=== PATIENT | female | born 1995 | race Two or more races ===

== ENCOUNTER 2017-01-09 07:47 | Inpatient (IN) | payer MEDICAID ==
[2017-01-09 08:32] LABS: APPEARANCE,URINE CLOUDY; BILIRUBIN,URINE NEGATIVE (NEGATIVE); GLUCOSE, URINE NEGATIVE (NEGATIVE); KETONES,URINE NEGATIVE (NEGATIVE); LEUKOCYTE ESTERASE,URINE TRACE (NEGATIVE); NITRITE,URINE NEGATIVE (NEGATIVE); PROTEIN,URINE 100 mg/dL (NEGATIVE); URINE SPECIFIC GRAVITY 1.009; UROBILINOGEN,URINE NEGATIVE mg/dL (<2.0)
[2017-01-09 08:42] LABS: AMNISURE (ROM) POSITIVE (NEGATIVE)
[2017-01-09 08:49] LABS: URINE BARBITURATES SCREEN NEGATIVE; URINE METHADONE SCREEN NEGATIVE; URINE OPIATES LOW NEGATIVE; URINE PHENCYCLIDINE SCREEN NEGATIVE
[2017-01-09] MEDS ORDERED: NALBUPHINE HCL INJ 10 MG/1 ML AMPULE INJ ONE (09:23)
[2017-01-09] MEDS ORDERED: PROMETHAZINE HCL INJ 25 MG/1 ML VIAL IV ONE (09:23)
[2017-01-09] MEDS ORDERED: PROMETHAZINE HCL INJ 25 MG/1 ML VIAL ONE (09:32)
[2017-01-09] MEDS ORDERED: NALBUPHINE HCL INJ 10 MG/1 ML AMPULE ONE (09:32)
[2017-01-09 09:45] LABS: ABSOLUTE EOSINOPHILS # (AUTO) 0.1 10^3/uL (0.0-0.6); ABSOLUTE LYMPHOCYTES (AUTO) 1.9 10^3/uL (0.5-4.7); ABSOLUTE MONOCYTES (AUTO) 0.8 10^3/uL (0.1-1.4); ABSOLUTE NEUT (AUTO) 6.4 10^3/uL (1.7-8.2); BASOPHILS % (AUTO) 0.5 % (0-2); EOSINOPHILS % (AUTO) 1.4 % (0-6); HEMATOCRIT 35.6 % (36.0-47.0); HEMOGLOBIN 12.1 g/dL (12.0-15.5); HGB HCT DIFFERENCE 0.7; LYMPHOCYTES % (AUTO) 20.6 % (13-45); MEAN CORPUSCULAR HEMOGLOBIN 31.1 pg (27.0-33.4); MEAN CORPUSCULAR HGB CONC 34.1 g/dL (32.0-36.0); MEAN CORPUSCULAR VOLUME 91 fl (80-97); MONOCYTES % (AUTO) 8.8 % (3-13); SEGMENTED NEUTROPHILS % (AUTO) 68.7 % (42-78); WHITE BLOOD COUNT 9.3 10^3/uL (4.0-10.5)
--- NOTE | 2017-01-09 10:01 | L&D Flow Sheet ---
LD Flowsheet Datetime Report Generated by CPN: 01/09/2017 10:00 Datetime: 01/09/2017 09:00 Uterine Activity Monitor Mode: External (Juliette Jaynalatt, RN) Frequency (min): 3-6 (Juliette Marlatt, RN) Quality: Mild/Moderate (Juliette Jaynalatt, RN) Duration (sec): 60-120 (Juliette Banda, RN) Resting Tone (Palpate): Relaxed (Juliette Jaynalatt, RN) Assessment A Monitor Mode: External US (Juliette Marlatt, RN) FHR Baseline Rate : 130 (Juliette Marlatt, RN) Variability: Moderate 6-25 bpm (Juliette Marlatt, RN) Accelerations: 15X15 (Juliette Marlatt, RN) Decelerations: None (Juliette Marlatt, RN) Datetime: 01/09/2017 08:30 Uterine Activity Monitor Mode: External (Juliette Marlatt, RN) Frequency (min): 5 (Juliette Marlatt, RN) Quality: Mild/Moderate (Juliette Marlatt, RN) Duration (sec): 60-90 (Juliette Marlatt, RN) Resting Tone (Palpate): Relaxed (Juliette Marlatt, RN) Assessment A Monitor Mode: External US (Juliette Marlatt, RN) FHR Baseline Rate : 130 (Juliette Marlatt, RN) Variability: Moderate 6-25 bpm (Juliette Marlatt, RN) Accelerations: 15X15 (Juliette Marlatt, RN) Decelerations: None (Juliette Marlatt, RN) Datetime: 01/09/2017 08:11 Vital Signs NBP Sys/Mackenzie/Mean (mmHg): 122 (QS system process) : 66 (QS system process) : 85 (QS system process) Pulse: 88 (QS system process) Datetime: 01/09/2017 08:10 Comments: Monitors applied, explained to pt. (Aidee Oconnell RN) Vaginal Exam Dilatation (cm): 1.0 (Aidee Oconnell RN) Effacement (%): 80 (Aidee Oconnell RN) Station: -1 (Aidee Oconnell RN) Exam by: Sean Oconnell RN (Aidee Oconnell RN) Patient Care Patient Position/Activity: Right Lateral (Aidee Oconnell, RN) Datetime: 01/09/2017 07:54 Frequency (min): q 3 min (Aidee Oconnell RN) Pain Pain Scale: 5 (Aidee Oconnell RN) Pain Presence: Intermittent (Aidee Oconnell RN) Pain Type: Contraction (Aidee Oconnell RN) Pain Location: Abdomen (Aidee Oconnell RN) Pain Goal: 0 (Aidee Oconnell RN) Pain Relief Measures: Comfort Measures (Aidee Oconnell RN) Pain Coping: Breathing Through Contractions (Aidee Oconnell RN) Vaginal Bleeding: Scant (Aidee Oconnell RN) Maternal Assessment Level of Consciousness: Fully Conscious (Aidee Oconnell RN) DTR's/Clonus: DTRs 2+; No Clonus (Aidee Oconnell RN) Headache: Denies (Aidee Oconnell RN) Breath Sounds, Left: Clear and Equal (Aidee Oconnell RN) Breath Sounds, Right: Clear and Equal (Aidee Oconnell RN) Nausea/Vomiting: Denies (Aidee Oconnell RN) RUQ Epigastric Pain: Denies (Aidee Oconnell RN)
--- NOTE | 2017-01-09 12:02 | L&D Flow Sheet ---
LD Flowsheet Datetime Report Generated by CPN: 01/09/2017 12:00 Datetime: 01/09/2017 11:30 Monitor Mode: External; Palpation (Aidee Oconnell, RN) Frequency (min): 2-4 (Aidee Oconnell, RN) Quality: Mild/Moderate (Aidee Oconnell, RN) Duration (sec): 60-90 (Aidee Oconnell, RN) Resting Tone (Palpate): Relaxed (Aidee Oconnell, RN) Datetime: 01/09/2017 11:00 Monitor Mode: External; Palpation (Aidee Oconnell, RN) Frequency (min): 5-6 (Aidee Oconnell, RN) Quality: Mild/Moderate (Aidee Oconnell, RN) Duration (sec): 80-130 (Aidee Oconnell, RN) Resting Tone (Palpate): Relaxed (Aidee Oconnell, RN) Monitor Mode: External US (Aidee Oconnell, RN) FHR Baseline Rate : 130 (Aidee Oconnell, RN) Variability: Minimal - Undetectable to <=5 bpm (Aidee Oconnell, RN) Accelerations: 15X15 (Aidee Oconnell, RN) Decelerations: None (Aidee Oconnell, RN) Datetime: 01/09/2017 10:30 Monitor Mode: External; Palpation (Aidee Oconnell, RN) Frequency (min): 4-5 (Aidee Oconnell, RN) Quality: Mild/Moderate (Aidee Oconnell, RN) Duration (sec): 80-120 (Aidee Oconnell, RN) Resting Tone (Palpate): Relaxed (Aidee Oconnell, RN) Monitor Mode: External US (Aidee Oconnell, RN) FHR Baseline Rate : 130 (Aidee Oconnell, RN) Variability: Minimal - Undetectable to <=5 bpm (Aidee Oconnell, RN) Accelerations: 10X10 (Aidee Oconnell, RN) Decelerations: None (Aidee Oconnell, RN) Datetime: 01/09/2017 10:00 Monitor Mode: External (Rosalba Ayush, RN) Frequency (min): 3-5 (Rosalbalonnie Peacock, RN) Quality: Mild/Moderate (Rosalba Ayush, RN) Duration (sec): 60-80 (Rosalba Ayush, RN) Resting Tone (Palpate): Relaxed (Rosalba Peacock, RN) Monitor Mode: External US (Rosalba Peacock, RN) FHR Baseline Rate : 130 (Rosalba Ayush, RN) Variability: Moderate 6-25 bpm (Rosalba Ayush, RN) Accelerations: 15X15 (Rosalba Ayush, RN) Decelerations: Early (Rosalba Peacock, RN)
[2017-01-09] MEDS: RINGERS SOLUTION,LACTATED 1,000 ML IV PRN ×2 (12:22→12:40)
[2017-01-09] MEDS ORDERED: EPHEDRINE SULFATE INJ 50 MG/1 ML AMPULE ONE (12:25)
[2017-01-09] MEDS ORDERED: FENTANYL CITRATE INJ/PF 100 MCG/2 ML AMPUL ONE (12:25)
[2017-01-09] MEDS ORDERED: FENTANYL/BUPIVACAINE/NS/PF 200 MCG/100 ML RTUINJ EPI ONE (12:26)
[2017-01-09] MEDS ORDERED: BUPIVACAINE HCL 0.25 % INJ/PF (2.5 MG/1 ML) 30 ML VIAL ONE (12:26)
[2017-01-09] MEDS ORDERED: PHENYLEPHRINE HCL INJ/PF 10 MG/1 ML SDV ONE (12:26)
[2017-01-09] MEDS ORDERED: FENTANYL/BUPIVACAINE/NS/PF 100 ML EPI PRN (12:30)
[2017-01-09] MEDS ORDERED: BUPIVACAINE HCL 0.25 % INJ/PF (2.5 MG/1 ML) 30 ML VIAL INFIL ONE (12:30)
--- NOTE | 2017-01-09 14:01 | L&D Flow Sheet ---
LD Flowsheet Datetime Report Generated by CPN: 01/09/2017 14:00 Datetime: 01/09/2017 13:45 Monitor Mode: External US (Aideegaby Oconnlel, RN) FHR Baseline Rate : 140 (Aideegaby Oconnell, RN) Variability: Minimal - Undetectable to <=5 bpm (Aidee Eubankson, RN) Accelerations: 15X15 (Aidee Oconnell, RN) Decelerations: None (Aidee Oconnell, RN) Datetime: 01/09/2017 13:43 NBP Sys/Mackenzie/Mean (mmHg): 111 (QS system process) : 73 (QS system process) : 87 (QS system process) Pulse: 102 (QS system process) LaborFlag: Antepartum (QS system process) Datetime: 01/09/2017 13:27 NBP Sys/Mackenzie/Mean (mmHg): 109 (QS system process) : 65 (QS system process) : 81 (QS system process) Pulse: 96 (QS system process) LaborFlag: Antepartum (QS system process) Datetime: 01/09/2017 13:18 Pain Scale: 0 (Aidee Oconnell RN) Pain Presence: None/Denies (Aidee Oconnell RN) Pain Type: N/A (Aidee Oconnell RN) Pain Goal: 0 (Aidee Oconnell RN) Pain Relief Measures: GUTTER INSTALLER Use (Aidee Oconnell RN) LaborFlag: Antepartum (QS system process) Datetime: 01/09/2017 13:15 Monitor Mode: External US (Aidee Oconnell, RN) FHR Baseline Rate : 130 (Aidee Oconnell, RN) Variability: Moderate 6-25 bpm (Aidee Oconnell, RN) Accelerations: 15X15 (Aidee Oconnell, RN) Decelerations: Early (Aidee Oconnell, RN) Datetime: 01/09/2017 13:12 NBP Sys/Mackenzie/Mean (mmHg): 101 (QS system process) : 58 (QS system process) : 74 (QS system process) Pulse: 88 (QS system process) I/O Interventions: Mccormick Cath Inserted (Aidee Oconnell, AHSAN) LaborFlag: Antepartum (QS system process) Datetime: 01/09/2017 13:10 NBP Sys/Mackenzie/Mean (mmHg): 108 (QS system process) : 66 (QS system process) : 82 (QS system process) Pulse: 77 (QS system process) LaborFlag: Antepartum (QS system process) Datetime: 01/09/2017 13:09 Anesthesia Level Check: T10- Umbilicus (Aidee Oconnell, RN) Datetime: 01/09/2017 13:07 NBP Sys/Mackenzie/Mean (mmHg): 109 (QS system process) : 60 (QS system process) : 78 (QS system process) Pulse: 81 (QS system process) LaborFlag: Antepartum (QS system process) Datetime: 01/09/2017 13:04 NBP Sys/Mackenzie/Mean (mmHg): 128 (QS system process) : 73 (QS system process) : 92 (QS system process) Pulse: 95 (QS system process) LaborFlag: Antepartum (QS system process) Datetime: 01/09/2017 13:01 NBP Sys/Mackenzie/Mean (mmHg): 131 (QS system process) : 75 (QS system process) : 97 (QS system process) Pulse: 92 (QS system process) Pulse: 93 (QS system process) SpO2 (%): 97 (QS system process) LaborFlag: Antepartum (QS system process) Datetime: 01/09/2017 13:00 Monitor Mode: External US (Aidee Oconnell RN) FHR Baseline Rate : 130 (Aidee Oconnell RN) Variability: Moderate 6-25 bpm (Aidee Oconnell, RN) Accelerations: 15X15 (Aidee Oconnell, RN) Decelerations: None (Aidee Oconnell, RN) Epidural Procedure: Cath Placed (Aidee Eubankson, RN) Datetime: 01/09/2017 12:59 NBP Sys/Mackenzie/Mean (mmHg): 140 (QS system process) : 76 (QS system process) : 102 (QS system process) Pulse: 86 (QS system process) LaborFlag: Antepartum (QS system process) Datetime: 01/09/2017 12:57 Epidural Procedure: Test Dose (Aidee Eubankson, RN) Datetime: 01/09/2017 12:56 Pulse: 94 (QS system process) SpO2 (%): 99 (QS system process) LaborFlag: Antepartum (QS system process) Datetime: 01/09/2017 12:51 Pulse: 100 (QS system process) SpO2 (%): 98 (QS system process) LaborFlag: Antepartum (QS system process) Datetime: 01/09/2017 12:48 Procedure Verify: Correct Patient Identity; Correct Side and Site are Marked; Accurate Procedure Consent Form; Agreement on Procedure to be Done; Correct Patient Position (Aidee Oconnell RN) Anesthesia Plans: Epidural (Aidee Oconnell RN) Epidural Positioning: Sitting (Aidee Oconnell RN) Datetime: 01/09/2017 12:42 NBP Sys/Mackenzie/Mean (mmHg): 126 (QS system process) : 78 (QS system process) : 96 (QS system process) Pulse: 82 (QS system process) LaborFlag: Antepartum (QS system process) Datetime: 01/09/2017 12:30 Monitor Mode: External; Palpation (Aidee Oconnell, RN) Frequency (min): 2-4.5 (Aidee Oconnell, RN) Quality: Mild/Moderate (Aidee Oconnell, RN) Duration (sec): 60-100 (Aidee Oconnell, RN) Resting Tone (Palpate): Relaxed (Aidee Oconnell, RN) Monitor Mode: External US (Aidee Eubankson, RN) FHR Baseline Rate : 130 (Aidee Oconnell, RN) Variability: Minimal - Undetectable to <=5 bpm (Aidee Oconnell, RN) Accelerations: 15X15 (Aidee Oconnell, RN) Decelerations: Early (Aidee Oconnell, RN) Datetime: 01/09/2017 12:22 Pain Scale: 5 (Aidee Oconnell RN) Pain Presence: Intermittent (Aidee Oconnell RN) Pain Type: Contraction (Aidee Oconnell RN) Pain Location: Abdomen (Aidee Oconnell RN) Pain Goal: 5 (Aidee Oconnell RN) Pain Assessment Comments: Epidural requested. (Aidee Oconnell RN) LaborFlag: Antepartum (QS system process) Datetime: 01/09/2017 12:17 Dilatation (cm): 3.0 (Rosalba Peacock RN) Effacement (%): 90 (Rosalba Peacock RN) Station: -1 (Rosalba Peacock RN) Exam by: Sean Oconnell RN (Rosalba Peacock, AHSAN) Datetime: 01/09/2017 12:04 Temperature (F): 98.4 (Aidee Oconnell RN) Temperature (C): 36.9 (QS system process) Temperature Route: Oral (Aidee Oconnell RN) LaborFlag: Antepartum (QS system process) Datetime: 01/09/2017 12:00 Monitor Mode: External; Palpation (Aidee Oconnell RN) Frequency (min): 2-4 (Aidee Oconnell RN) Quality: Moderate (Aidee Oconnell RN) Duration (sec): 60-110 (Aidee Oconnell RN) Resting Tone (Palpate): Relaxed (Aidee Oconnell RN) Monitor Mode: External US (Aidee Oconnell RN) FHR Baseline Rate : 130 (Aidee Oconnell RN) Variability: Minimal - Undetectable to <=5 bpm (Aidee Oconnell RN) Accelerations: None (Aidee Oconnell RN) Decelerations: Late (Aidee Oconnell RN)
[2017-01-09] MEDS ORDERED: MISOPROSTOL 0.2 MG TABLET ONE (14:30)
[2017-01-09] MEDS ORDERED: OXYTOCIN/NORMAL SALINE 20 UNIT/1,000 ML RTUINJ ONE (14:30)
[2017-01-09] MEDS ORDERED: LIDOCAINE 1% INJ-PF (10 MG/ML) 30 ML SDV ONE (14:30)
--- NOTE | 2017-01-09 16:01 | L&D Flow Sheet ---
LD Flowsheet Datetime Report Generated by CPN: 01/09/2017 16:00 Datetime: 01/09/2017 15:57 NBP Sys/Mackenzie/Mean (mmHg): 107 (QS system process) : 67 (QS system process) : 82 (QS system process) Pulse: 75 (QS system process) Datetime: 01/09/2017 15:43 NBP Sys/Mackenzie/Mean (mmHg): 110 (QS system process) : 65 (QS system process) : 82 (QS system process) Pulse: 98 (QS system process) Respirations: 16 (Aidee Oconnell, RN) Pain Scale: 1 (Aidee Oconnell, RN) Pain Presence: Intermittent (Aidee Oconnell, RN) Pain Type: Cramping (Aidee Oconnell, RN) Pain Location: Abdomen (Aidee Oconnell, RN) Pain Goal: 0 (Aidee Oconnell, RN) Datetime: 01/09/2017 15:28 NBP Sys/Mackenzie/Mean (mmHg): 109 (QS system process) : 72 (QS system process) : 84 (QS system process) Pulse: 99 (QS system process) Respirations: 16 (Aidee Oconnell, RN) Pain Scale: 1 (Aidee Oconnell, RN) Pain Presence: Intermittent (Aidee Oconnell, RN) Pain Type: Cramping (Aidee Oconnell, RN) Pain Location: Abdomen (Aidee Oconnell, RN) Pain Goal: 0 (Aidee Oconnell, RN) Datetime: 01/09/2017 15:12 NBP Sys/Mackenzie/Mean (mmHg): 111 (QS system process) : 77 (QS system process) : 87 (QS system process) Pulse: 105 (QS system process) Respirations: 16 (Aidee Oconnell, AHSAN) Pain Scale: 0 (Aidee Oconnell RN) Pain Presence: None/Denies (Aidee Oconnell RN) Pain Type: N/A (Aidee Oconnell, AHSAN) Pain Goal: 0 (Aidee Oconnell, AHSAN) Datetime: 01/09/2017 15:01 Stage of : Recovery (Aidee Oconnell RN) Stage of : Recovery (Vita ScottAHSAN) Datetime: 01/09/2017 15:00 Stage 2 Comments: viable boy; see delivery summary (Aidee Oconnell, AHSAN) Datetime: 01/09/2017 14:59 NBP Sys/Mackenzie/Mean (mmHg): 109 (QS system process) : 80 (QS system process) : 91 (QS system process) Pulse: 142 (QS system process) LaborFlag: Antepartum (QS system process) Datetime: 01/09/2017 14:42 NBP Sys/Mackenzie/Mean (mmHg): 107 (QS system process) : 72 (QS system process) : 84 (QS system process) Pulse: 120 (QS system process) LaborFlag: Antepartum (QS system process) Datetime: 01/09/2017 14:35 Stage 2 Comments: Room set up for delivery. (Aidee Eubankson, RN) Datetime: 01/09/2017 14:31 Patient Position/Activity: Right Lateral; Peanut Ball (Aidee Oconnell, RN) Datetime: 01/09/2017 14:30 Monitor Mode: External; Palpation (Aidee Oconnell, RN) Frequency (min): 2-5 (Aidee Oconnell, RN) Quality: Moderate (Aidee Oconnell, RN) Duration (sec): 60-80 (Aidee Oconnell, RN) Resting Tone (Palpate): Relaxed (Aidee Oconnell, RN) Monitor Mode: External US (Aidee Oconnell, RN) FHR Baseline Rate : 140 (Aidee Oconnell, RN) Variability: Minimal - Undetectable to <=5 bpm (Aidee Oconnell, RN) Accelerations: 15X15 (Aidee Oconnell, RN) Decelerations: Early (Aidee Oconnell, RN) Datetime: 01/09/2017 14:29 Communication: Provider Orders Received; Call/Page Placed to Provider (Aidee Oconnell RN) Provider Notified (Name): Dr. Choe (Aidee Oconnell RN) Communication Comments: Notified of SVE and imminent delivery. Provider to come to bedside for delivery. (Aidee Oconnell RN) Datetime: 01/09/2017 14:28 Dilatation (cm): 10.0 (Aidee Oconnell RN) Effacement (%): 100 (Aidee Oconnell RN) Station: 2 (Aidee Oconnell RN) Exam by: Sean Oconnell (Aidee Oconnell RN) Datetime: 01/09/2017 14:27 NBP Sys/Mackenzie/Mean (mmHg): 102 (QS system process) : 66 (QS system process) : 79 (QS system process) Pulse: 90 (QS system process) LaborFlag: Antepartum (QS system process) Datetime: 01/09/2017 14:15 Monitor Mode: External; Palpation (Aidee Oconnell, RN) Frequency (min): 2-4 (Aidee Oconnlel, RN) Quality: Moderate (Aidee Oconnell, RN) Duration (sec): 60-80 (Aidee Oconnell, RN) Resting Tone (Palpate): Relaxed (Aidee Oconnell, RN) Monitor Mode: External US (Aidee Oconnell, RN) FHR Baseline Rate : 140 (Aidee Oconnell, RN) Variability: Minimal - Undetectable to <=5 bpm (Aidee Oconnell, RN) Accelerations: 10X10 (Aidee Oconnell, RN) Decelerations: None (Aidee Oconnell, RN) Datetime: 01/09/2017 14:12 NBP Sys/Mackenzie/Mean (mmHg): 100 (QS system process) : 64 (QS system process) : 77 (QS system process) Pulse: 85 (QS system process) LaborFlag: Antepartum (QS system process) Datetime: 01/09/2017 14:06 Patient Position/Activity: Left Lateral; Peanut Ball (Aidee Oconnell RN) Datetime: 01/09/2017 14:00 Monitor Mode: External; Palpation (Aidee Oconnell RN) Frequency (min): 2-4 (Aidee Oconnell RN) Quality: Moderate (Aidee Oconnell RN) Duration (sec): 60-90 (Aidee Oconnell RN) Resting Tone (Palpate): Relaxed (Aidee Oconnell RN) Monitor Mode: External US (Aidee Oconnell RN) FHR Baseline Rate : 140 (Aidee Oconnell RN) Variability: Minimal - Undetectable to <=5 bpm (Aidee Oconnell RN) Accelerations: None (Aidee Oconnell RN) Decelerations: Late; Variable (Aidee Oconnell RN)
[2017-01-09] MEDS ORDERED: ACETAMINOPHEN WITH CODEINE #3 TABLET ONE (17:06)
--- NOTE | 2017-01-09 17:21 | Admission Physical ---
Datetime Report Generated by CPN: 01/09/2017 17:21 CURRENT ADMISSION Hx Assessment: The History has been Reviewed and is Current Chief Complaint: Uterine Contractions; Suspected Ruptured Membranes Indication for Induction: Not Applicable Admit Plan: Admit to Unit; Initiate Labor Protocol ALLERGIES Medication Allergies: No Medication Allergies: No Known Allergies (01/09/2017) Latex: No Latex Allergies Food Allergies: None Environmental Allergies: None OBSTETRICAL HISTORY EDC: 01/14/2017 00:00 : 1 Para: 0 Term: 0 : 0 SAB: 0 IAB: 0 Ectopic: 0 Livin Cesareans: 0 VBACs: 0 Multiple Births: 0 Gestational Diabetes: No Rh Sensitization: No Incompetent Cervix: No CHRISTELLE: No Infertility: No ART Treatment: No Uterine Anomaly: No IUGR: No Hx Previous C/S: No Macrosomia: No Hx Loss/Stillborn: No PIH: No Hx : No Placenta Previa/Abruption: No Depression/PP Depression: No PTL/PROM: No Post Hemorrhage: No Current Procedures: Ultrasound; NST Obstetrical History Comments: G1 - current SEE RECORDS Alcohol: No Marijuana : No Cocaine: No Other Illicit Drugs: No Cigarettes: Light Tobacco Smoker. [id number] MEDICAL HISTORY Diabetes: No Blood Transfusion: No Pulmonary Disease (Asthma, TB): No Breast Disease: No Hypertension: No Voice Professor Surgery: No Heart Disease: No Hosp/Surgery: Yes Autoimmune Disorder: No Anesthetic Complications: No Kidney Disease: Yes Abnormal Pap Smear: No Neuro/Epilepsy: No Psychiatric Disorders: No Other Medical Diseases: No Hepatitis/Liver Disease: Yes Significant Family History: No Varicosities/Phlebitis: No Trauma/Violence : No Thyroid Dysfunction: No Medical History Comments: Kidney stones INFECTIOUS HISTORY Gonorrhea: No Genital Herpes: No Chlamydia: No Tuberculosis: No Syphilis: No Hepatitis: Yes HIV/AIDS Exposure: No Rash or Viral Illness: No HPV: No PHYSICAL EXAM General: Normal HEENT: Deferred Neurologic: Deferred Thyroid: Deferred Heart: Normal Lungs: Normal Breast: Deferred Back: Deferred Abdomen: Normal Genitourinary Exam: Normal Extremities: Normal DTRs: Normal Pelvic Type: Adequate Vital Signs: Reviewed; Within Normal Limits MEMBRANES Membranes: Ruptured Amniotic Fluid Color: Clear FETUS A EGA: 39.2 FHR Category: Category I Admit Comment: Term srom 0630. gbs neg, early labor. epidural PLANS FOR LABOR AND DELIVERY Labor and Delivery: None Pain Management: Epidural Feeding Preference: Both Benefit of Breast Feed Discussed: Yes Circumcision: Yes INFORMED CONSENT Signature: with User ID: [email or web address]
[2017-01-09] MEDS ORDERED: DIBUCAINE 1% OINTMENT 28 GM TP PRN (17:23)
[2017-01-09] MEDS ORDERED: ZOLPIDEM TARTRATE 5 MG TABLET PO PRN (17:23)
[2017-01-09] MEDS ORDERED: MEASLES,MUMPS&RUBELLA VACC/PF 0.5 ML VIAL SUBCUT PRN (17:23)
[2017-01-09] MEDS ORDERED: BENZOCAINE/MENTHOL AEROSOL SPRAY 56 ML TOP PRN (17:23)
[2017-01-09] MEDS ORDERED: ACETAMINOPHEN WITH CODEINE #3 TABLET PO PRN (17:23)
[2017-01-09] MEDS ORDERED: OXYTOCIN/NORMAL SALINE 1,000 ML IV PRN (17:23)
[2017-01-09] MEDS ORDERED: DIPH/PERTUSS(ACELL)/TETANUS VAC/PF 0.5 ML SYR (>=10YO) IM PRN (17:23)
--- NOTE | 2017-01-09 17:26 | Delivery Summary ---
Del Sum A-C Datetime Report Generated by CPN: 01/09/2017 17:26 ADMISSION DATA Chief Complaint: Uterine Contractions; Suspected Ruptured Membranes Indication for Induction: Not Applicable Admission Impression: Term, Intrauterine ; Active Labor; Ruptured Membranes Admit Provider Comments: Term srom 0630. gbs neg, early labor. epidural DELIVERY PERSONNEL Delivery Doctor:: Rebecca Choe MD Labor and Delivery Nurse:: Aidee Oconnell RNspecialist employee labor relations Nurse:: Rosalba Peacock RN Scowman/DIESEL SERVICE APPRENTICE: Lluvia Vargas, CONSULTING PROJECT DIRECTOR MATERNAL INFORMATION Delivery Anesthesia: Epidural Medications After Delivery: Pitocin Drip 20 Units/1000ml NSS Estimated Blood Loss (ml): 250 Maternal Complications: None Provider Comments: over laceration as above with repair. live male ap 89. spontaneous intact placenta 3vc. no complications LABOR SUMMARY EDC: 01/14/2017 00:00 No. Babies in Womb: 1 Attempted: No Labor Anesthesia: Epidural LABOR INFORMATION Reason for Induction: Not Applicable Onset of Labor: 01/09/2017 07:00 Complete Dilatation: 01/09/2017 14:28 Oxytocin: N/A Group B Beta Strep: Negative Antibiotics # of Doses: 0 Steroids Given: None Reason Steroids Not Administered: Not Applicable MEMBRANES Membranes Rupture Method: Spontaneous Rupture of Membranes: 01/09/2017 06:30 Length of Rupture (hr): 8.50 Amniotic Fluid Color: Clear Amniotic Fluid Amount: Small Amniotic Fluid Odor: Normal STAGES OF LABOR Stage 1 hr: 7 Stage 1 min: 28 Stage 2 hr: 0 Stage 2 min: 32 Stage 3 hr: 0 Stage 3 min: 2 Total Time in Labor hr: 8 Total Time in Labor min: 2 VAGINAL DELIVERY Episiotomy: None Laceration Extension: Second Degree Laceration Type: Perineal Laceration Repair: Yes Laceration Repair Note: 2nd deg perineal lac with repair 3-0 vicryl in usual fashion Sponge Count Correct: Yes CSECTION DELIVERY CSection Incision: N/A BABY A INFORMATION Delivery Date/Time: 01/09/2017 15:00 Method of Delivery: Vaginal Born in Route : No : N/A Forceps: N/A Vacuum Extraction: N/A Shoulder Dystocia : No PRESENTATION/POSITION BABY A Presentation: Cephalic Cephalic Presentation: Vertex Vertex Position: Right Occipital Anterior Breech Presentation: N/A PLACENTA INFORMATION BABY A Placenta Delivery Time : 01/09/2017 15:02 Placenta Method of Delivery: Spontaneous Placenta Status: Delivered SCORES BABY A Heart Rate 1 min: >100 bpm Resp Effort 1 min: Good Cry Reflex Irritability 1 min: Cough or Sneeze or Pulls Away Muscle Tone 1 min: Active Motion Color 1 min: Blue/Pale Resuscitation Effort 1 min: Tactile Stimulation SCORE 1 MIN: 8 Heart Rate 5 min: >100 bpm Resp Effort 5 min: Good Cry Reflex Irritability 5 min: Cough or Sneeze or Pulls Away Muscle Tone 5 min: Active Motion Color 5 min: Body [place], Extremities Blue Resuscitation Effort 5 min: Tactile Stimulation SCORE 5 MIN: 9 INFANT INFORMATION BABY A Gestational Age at Delivery: 39.2 Gestational Status: Full Term- 39- 40.6 Weeks Infant Outcome : Liveborn Infant Condition : Stable Infant Sex: Male IDENTIFICATION BABY A Infant Verification Date/Time: 01/09/2017 15:07 ID Band Number: [id number] Mother's Name Verified: Yes RN Verifying Infant: Alex Scott RN Additional Verifying Personnel: GordonMelissa Oconnell RN WEIGHT/LENGTH BABY A Infant Birthweight (gm): 2840 Weight (lb): 6 Infant Weight (oz): 4 Length (in): 19.75 Infant Length (cm): 50.17 CORD INFORMATION BABY A No. Cord Vessels: 3 Nuchal Cord : N/A Cord Blood Taken: Yes-For Storage (Mom's Blood type +) Suction: Mouth; Nose ASSESSMENT BABY A Complications: None Physical Findings at Delivery: Caput Succedaneum Respirations: Appears Normal Skin to Skin: Yes Production Control Coordinating Clerk/ALS Called : No Infant Care By: Linda Garzas RN Transferred To: Remains with Mother SIGNATURES Signature: with User ID: [email or web address]
[2017-01-09] MEDS: DOCUSATE SODIUM 100 MG CAPSULE PO SCH (18:52)
[2017-01-09] MEDS: FERROUS SULFATE 325 MG TABLET PO SCH (18:52)
--- NOTE | 2017-01-09 19:01 | L&D Flow Sheet ---
LD Flowsheet Datetime Report Generated by CPN: 01/09/2017 19:00 Datetime: 01/09/2017 16:42 NBP Sys/Mackenzie/Mean (mmHg): 121 (QS system process) : 74 (QS system process) : 93 (QS system process) Pulse: 75 (QS system process) Respirations: 16 (Aidee Oconnell RN) Pain Pain Scale: 4 (Aidee Oconnell RN) Pain Presence: Constant (Aidee Oconnell RN) Pain Type: Sharp (Aidee Oconnell RN) Pain Location: Perineum (Aidee Oconnell, AHSAN) Pain Goal: 0 (Aidee Oconnell, AHSAN) Datetime: 01/09/2017 16:27 NBP Sys/Mackenzie/Mean (mmHg): 112 (QS system process) : 66 (QS system process) : 83 (QS system process) Pulse: 75 (QS system process) Respirations: 16 (Aidee Oconnell, AHSAN) Pain Pain Scale: 1 (Aidee Oconnell RN) Pain Presence: Intermittent (Aidee Oconnell, AHSAN) Pain Type: Cramping (Aidee Oconnell, AHSAN) Pain Location: Abdomen (Aidee Oconnell, AHSAN) Pain Goal: 0 (Aidee Oconnell RN) Pain Relief Measures: Comfort Measures (Aidee Oconnell RN) Datetime: 01/09/2017 16:12 NBP Sys/Mackenzie/Mean (mmHg): 111 (QS system process) : 68 (QS system process) : 86 (QS system process) Pulse: 76 (QS system process) Respirations: 16 (Aidee Oconnell, AHSAN) Pain Pain Scale: 1 (Aidee Oconnell, AHSAN) Pain Presence: Intermittent (Aidee Oconnell, AHSAN) Pain Type: Cramping (Aidee Oconnell RN) Pain Location: Abdomen (Aidee Oconnell, RN) Pain Goal: 0 (Aidee Oconnell RN) Pain Relief Measures: Comfort Measures (Aidee Oconnell, RN) Datetime: 01/09/2017 15:57 NBP Sys/Mackenzie/Mean (mmHg): 107 (QS system process) : 67 (QS system process) : 82 (QS system process) Pulse: 75 (QS system process) Respirations: 16 (Aidee Oconnell, RN) Pain Pain Scale: 1 (Aidee Oconnell, RN) Pain Presence: Intermittent (Aidee Oconnell, RN) Pain Type: Cramping (Aidee Oconnell, RN) Pain Location: Abdomen (Aidee Oconnell, RN) Pain Goal: 0 (Aidee Oconnell, RN) Datetime: 01/09/2017 15:43 NBP Sys/Mackenzie/Mean (mmHg): 110 (QS system process) : 65 (QS system process) : 82 (QS system process) Pulse: 98 (QS system process) Respirations: 16 (Aidee Oconnell, RN) Pain Pain Scale: 1 (Aidee Oconnell, RN) Pain Presence: Intermittent (Aidee Oconnell, RN) Pain Type: Cramping (Aidee Oconnell, RN) Pain Location: Abdomen (Aidee Oconnell, RN) Pain Goal: 0 (Aidee Oconnell, RN) Datetime: 01/09/2017 15:28 NBP Sys/Mackenzie/Mean (mmHg): 109 (QS system process) : 72 (QS system process) : 84 (QS system process) Pulse: 99 (QS system process) Respirations: 16 (Aidee Oconnell, RN) Pain Pain Scale: 1 (Aidee Oconnell, RN) Pain Presence: Intermittent (Aidee Oconnell, RN) Pain Type: Cramping (Aidee Oconnell, RN) Pain Location: Abdomen (Aidee Oconnell, RN) Pain Goal: 0 (Aidee Oconnell, RN) Datetime: 01/09/2017 15:12 NBP Sys/Mackenzie/Mean (mmHg): 111 (QS system process) : 77 (QS system process) : 87 (QS system process) Pulse: 105 (QS system process) Respirations: 16 (Aidee Oconnell, RN) Pain Pain Scale: 0 (Aidee Oconnell, RN) Pain Presence: None/Denies (Aidee Oconnell, RN) Pain Type: N/A (Aidee Oconnell, RN) Pain Goal: 0 (Aidee Oconnell, RN) Datetime: 01/09/2017 15:01 Vital Signs Stage of : Recovery (Aidee Oconnell, RN) Vital Signs Stage of : Recovery (Vita Tyler, RN) Datetime: 01/09/2017 15:00 Stage 2 Stage 2 Comments: viable boy; see delivery summary (Aidee Oconnell, RN) Datetime: 01/09/2017 14:59 NBP Sys/Mackenzie/Mean (mmHg): 109 (QS system process) : 80 (QS system process) : 91 (QS system process) Pulse: 142 (QS system process) LaborFlag: Antepartum (QS system process) Datetime: 01/09/2017 14:42 NBP Sys/Mackenzie/Mean (mmHg): 107 (QS system process) : 72 (QS system process) : 84 (QS system process) Pulse: 120 (QS system process) LaborFlag: Antepartum (QS system process) Datetime: 01/09/2017 14:35 Stage 2 Stage 2 Comments: Room set up for delivery. (Aidee Oconnell, RN) Datetime: 01/09/2017 14:31 Patient Care Patient Position/Activity: Right Lateral; Peanut Ball (Aidee Oconnell RN) Datetime: 01/09/2017 14:30 Uterine Activity Monitor Mode: External; Palpation (Aidee Oconnell RN) Frequency (min): 2-5 (Aidee Oconnell RN) Quality: Moderate (Aidee Oconnell RN) Duration (sec): 60-80 (Aidee Oconnell RN) Resting Tone (Palpate): Relaxed (Aidee Oconnell RN) Assessment A Monitor Mode: External US (Aidee Oconnell, AHSAN) FHR Baseline Rate : 140 (Aidee Oconnell, RN) Variability: Minimal - Undetectable to <=5 bpm (Aidee Oconnell, RN) Accelerations: 15X15 (Aidee Oconnell, RN) Decelerations: Early (Aidee Oconnell, RN) Datetime: 01/09/2017 14:29 Communication Communication: Provider Orders Received; Call/Page Placed to Provider (Aidee Oconnell RN) Provider Notified (Name): Dr. Choe (Aidee Oconnell RN) Communication Comments: Notified of SVE and imminent delivery. Provider to come to bedside for delivery. (Aidee Oconnell RN) Datetime: 01/09/2017 14:28 Vaginal Exam Dilatation (cm): 10.0 (Aidee Oconnell, RN) Effacement (%): 100 (Aidee Oconnell, RN) Station: 2 (Aidee Oconnell, RN) Exam by: Sean Oconnell (Aidee Oconnell, RN) Datetime: 01/09/2017 14:27 NBP Sys/Mackenzie/Mean (mmHg): 102 (QS system process) : 66 (QS system process) : 79 (QS system process) Pulse: 90 (QS system process) LaborFlag: Antepartum (QS system process) Datetime: 01/09/2017 14:15 Uterine Activity Monitor Mode: External; Palpation (Aidee Oconnell, RN) Frequency (min): 2-4 (Aidee Oconnell, RN) Quality: Moderate (Aidee Oconnell, RN) Duration (sec): 60-80 (Aidee Oconnell, RN) Resting Tone (Palpate): Relaxed (Aidee Oconnell, RN) Assessment A Monitor Mode: External US (Aidee Oconnell, RN) FHR Baseline Rate : 140 (Aidee Oconnell, RN) Variability: Minimal - Undetectable to <=5 bpm (Aidee Oconnell, RN) Accelerations: 10X10 (Aidee Oconnell, RN) Decelerations: None (Aidee Oconnell, RN) Datetime: 01/09/2017 14:12 NBP Sys/Mackenzie/Mean (mmHg): 100 (QS system process) : 64 (QS system process) : 77 (QS system process) Pulse: 85 (QS system process) LaborFlag: Antepartum (QS system process) Datetime: 01/09/2017 14:06 Patient Care Patient Position/Activity: Left Lateral; Peanut Ball (Aidee Oconnell, RN) Datetime: 01/09/2017 14:00 Uterine Activity Monitor Mode: External; Palpation (Adiee Oconnell, RN) Frequency (min): 2-4 (Aidee Oconnell, RN) Quality: Moderate (Aidee Oconnell, RN) Duration (sec): 60-90 (Aidee Oconnell, RN) Resting Tone (Palpate): Relaxed (Aidee Oconnell, RN) Assessment A Monitor Mode: External US (Aidee Oconnell, RN) FHR Baseline Rate : 140 (Aidee Oconnell, RN) Variability: Minimal - Undetectable to <=5 bpm (Aidee Eubankson, RN) Accelerations: None (Aidee Oconnell, RN) Decelerations: Late; Variable (Aidee Oconnell, RN) Datetime: 01/09/2017 13:45 Uterine Activity Monitor Mode: External; Palpation (Aidee Oconnell, RN) Frequency (min): 2.5-4 (Aidee Oconnell, AHSAN) Quality: Moderate (Aidee Oconnell, AHSAN) Duration (sec): 60-90 (Aidee Oconnell, RN) Resting Tone (Palpate): Relaxed (Aidee Oconnell, RN) Assessment A Monitor Mode: External US (Aidee Oconnell, RN) FHR Baseline Rate : 140 (Aidee Oconnell, RN) Variability: Minimal - Undetectable to <=5 bpm (Aidee Oconnell, RN) Accelerations: 15X15 (Aidee Oconnell, RN) Decelerations: None (Aidee Oconnell, RN) Datetime: 01/09/2017 13:43 NBP Sys/Mackenzie/Mean (mmHg): 111 (QS system process) : 73 (QS system process) : 87 (QS system process) Pulse: 102 (QS system process) LaborFlag: Antepartum (QS system process) Datetime: 01/09/2017 13:30 Uterine Activity Monitor Mode: External; Palpation (Aidee Oconnell, RN) Frequency (min): 2-4 (Aidee Oconnell, RN) Quality: Moderate (Aidee Oconnell, RN) Duration (sec): 60-100 (Aidee Oconnell, RN) Resting Tone (Palpate): Relaxed (Aidee Oconnell, RN) Assessment A Monitor Mode: External US (Aidee Oconnell, RN) FHR Baseline Rate : 135 (Aidee Oconnell, RN) Variability: Moderate 6-25 bpm (Aidee Oconnell, RN) Accelerations: 15X15 (Aidee Oconnell, RN) Decelerations: Early (Aidee Oconnell, RN) Datetime: 01/09/2017 13:27 NBP Sys/Mackenzie/Mean (mmHg): 109 (QS system process) : 65 (QS system process) : 81 (QS system process) Pulse: 96 (QS system process) LaborFlag: Antepartum (QS system process) Datetime: 01/09/2017 13:18 Pain Pain Scale: 0 (Aidee Oconnell RN) Pain Presence: None/Denies (Aidee Oconnell RN) Pain Type: N/A (Aidee Oconnell RN) Pain Goal: 0 (Aidee Oconnell RN) Pain Relief Measures: CROSSING TENDER Use (Aidee Oconnell RN) LaborFlag: Antepartum (QS system process) Datetime: 01/09/2017 13:15 Uterine Activity Monitor Mode: External; Palpation (Aidee Oconnell, RN) Frequency (min): 2-4 (Aidee Oconnell, RN) Quality: Moderate (Aidee Oconnell, RN) Duration (sec): 60-80 (Aidee Oconnell, RN) Resting Tone (Palpate): Relaxed (Aidee Oconnell, RN) Assessment A Monitor Mode: External US (Aidee Oconnell, RN) FHR Baseline Rate : 130 (Aidee Oconnell, RN) Variability: Moderate 6-25 bpm (Aidee Oconnell, RN) Accelerations: 15X15 (Aidee Oconnell, RN) Decelerations: Early (Aidee Oconnell, RN) Datetime: 01/09/2017 13:12 NBP Sys/Mackenzie/Mean (mmHg): 101 (QS system process) : 58 (QS system process) : 74 (QS system process) Pulse: 88 (QS system process) I/O Interventions: Mccormick Cath Inserted (Aidee Oconnell RN) LaborFlag: Antepartum (QS system process) Datetime: 01/09/2017 13:10 NBP Sys/Mackenzie/Mean (mmHg): 108 (QS system process) : 66 (QS system process) : 82 (QS system process) Pulse: 77 (QS system process) LaborFlag: Antepartum (QS system process) Datetime: 01/09/2017 13:09 Anesthesia Level Check: T10- Umbilicus (Aidee Oconnell RN) Datetime: 01/09/2017 13:07 NBP Sys/Mackenzie/Mean (mmHg): 109 (QS system process) : 60 (QS system process) : 78 (QS system process) Pulse: 81 (QS system process) LaborFlag: Antepartum (QS system process) Datetime: 01/09/2017 13:04 NBP Sys/Mackenzie/Mean (mmHg): 128 (QS system process) : 73 (QS system process) : 92 (QS system process) Pulse: 95 (QS system process) LaborFlag: Antepartum (QS system process) Datetime: 01/09/2017 13:01 NBP Sys/Mackenzie/Mean (mmHg): 131 (QS system process) : 75 (QS system process) : 97 (QS system process) Pulse: 92 (QS system process) Pulse: 93 (QS system process) SpO2 (%): 97 (QS system process) LaborFlag: Antepartum (QS system process) Datetime: 01/09/2017 13:00 Uterine Activity Monitor Mode: External; Palpation (Aidee Oconnell RN) Frequency (min): 2-3 (Aidee Oconnell RN) Quality: Moderate (Aidee Oconnell RN) Duration (sec): 60-90 (Aidee Oconnell RN) Resting Tone (Palpate): Relaxed (Aidee Oconnell RN) Assessment A Monitor Mode: External US (Aidee Oconnell, RN) FHR Baseline Rate : 130 (Aidee Oconnell, RN) Variability: Moderate 6-25 bpm (Aidee Oconnell, RN) Accelerations: 15X15 (Aidee Oconnell, RN) Decelerations: None (Aidee Oconnell, RN) Epidural Procedure: Cath Placed (Aidee Oconnell, RN) Datetime: 01/09/2017 12:59 NBP Sys/Mackenzie/Mean (mmHg): 140 (QS system process) : 76 (QS system process) : 102 (QS system process) Pulse: 86 (QS system process) LaborFlag: Antepartum (QS system process) Datetime: 01/09/2017 12:57 Epidural Procedure: Test Dose (Aidee Oconnell, RN) Datetime: 01/09/2017 12:56 Pulse: 94 (QS system process) SpO2 (%): 99 (QS system process) LaborFlag: Antepartum (QS system process) Datetime: 01/09/2017 12:51 Pulse: 100 (QS system process) SpO2 (%): 98 (QS system process) LaborFlag: Antepartum (QS system process) Datetime: 01/09/2017 12:48 Procedure TIME OUT Procedure Verify: Correct Patient Identity; Correct Side and Site are Marked; Accurate Procedure Consent Form; Agreement on Procedure to be Done; Correct Patient Position (Aidee Oconnell, RN) Anesthesia Anesthesia Plans: Epidural (Aidee Oconnell, RN) Epidural Positioning: Sitting (Aidee Oconnell, RN) Datetime: 01/09/2017 12:42 NBP Sys/Mackenzie/Mean (mmHg): 126 (QS system process) : 78 (QS system process) : 96 (QS system process) Pulse: 82 (QS system process) LaborFlag: Antepartum (QS system process) Datetime: 01/09/2017 12:30 Uterine Activity Monitor Mode: External; Palpation (Aidee Oconnell, RN) Frequency (min): 2-4.5 (Aidee Oconnell, RN) Quality: Mild/Moderate (Aidee Oconnell, RN) Duration (sec): 60-100 (Aidee Oconnell, RN) Resting Tone (Palpate): Relaxed (Aidee Oconnell, RN) Assessment A Monitor Mode: External US (Aidee Oconnell, RN) FHR Baseline Rate : 130 (Aidee Oconnell, RN) Variability: Minimal - Undetectable to <=5 bpm (Aidee Oconnell RN) Accelerations: 15X15 (Aidee Oconnell, AHSAN) Decelerations: Early (Aidee Oconnell, AHSAN) Datetime: 01/09/2017 12:22 Pain Pain Scale: 5 (Aidee Oconnell RN) Pain Presence: Intermittent (Aidee Oconnell RN) Pain Type: Contraction (Aidee Oconnell RN) Pain Location: Abdomen (Aidee Oconnell RN) Pain Goal: 0 (Aidee Oconnell RN) Pain Assessment Comments: Epidural requested. (Aidee Oconnell RN) LaborFlag: Antepartum (QS system process) Datetime: 01/09/2017 12:17 Vaginal Exam Dilatation (cm): 3.0 (Rosalba Ayush, RN) Effacement (%): 90 (Rosalba Ayush, RN) Station: -1 (Rosalba Ayush, RN) Exam by: Sean Oconnell RN (Rosalba Ayush, RN) Datetime: 01/09/2017 12:04 Temperature (F): 98.4 (Aidee Oconnell, RN) Temperature (C): 36.9 (QS system process) Temperature Route: Oral (Aidee Oconnell, RN) LaborFlag: Antepartum (QS system process) Datetime: 01/09/2017 12:00 Uterine Activity Monitor Mode: External; Palpation (Aidee Oconnell, RN) Frequency (min): 2-4 (Aidee Oconnell, RN) Quality: Moderate (Aidee Oconnell, RN) Duration (sec): 60-110 (Aidee Oconnell, RN) Resting Tone (Palpate): Relaxed (Aidee Oconnell, RN) Assessment A Monitor Mode: External US (Aidee Oconnell, RN) FHR Baseline Rate : 130 (Aidee Oconnell, RN) Variability: Minimal - Undetectable to <=5 bpm (Aidee Oconnell, RN) Accelerations: None (Aidee Oconnell, RN) Decelerations: Late (Aidee Oconnell, RN) Datetime: 01/09/2017 11:30 Uterine Activity Monitor Mode: External; Palpation (Aidee Oconnell, RN) Frequency (min): 2-4 (Aidee Oconnell, RN) Quality: Mild/Moderate (Aidee Oconnell, RN) Duration (sec): 60-90 (Aidee Oconnell, AHSAN) Resting Tone (Palpate): Relaxed (Aidee Oconnell, RN) Assessment A Monitor Mode: External US (Aidee Oconnell, RN) FHR Baseline Rate : 130 (Aidee Oconnell, RN) Variability: Minimal - Undetectable to <=5 bpm (Aidee Oconnell, AHSAN) Accelerations: 10X10 (Aidee Oconnell, RN) Decelerations: None (Aidee Oconnell, RN) Datetime: 01/09/2017 11:00 Uterine Activity Monitor Mode: External; Palpation (Aidee Oconnell, RN) Frequency (min): 5-6 (Aidee Oconnell, RN) Quality: Mild/Moderate (Aidee Oconnell, RN) Duration (sec): 80-130 (Aidee Oconnell, RN) Resting Tone (Palpate): Relaxed (Aidee Oconnell, RN) Assessment A Monitor Mode: External US (Aidee Oconnell, RN) FHR Baseline Rate : 130 (Aidee Oconnell, RN) Variability: Minimal - Undetectable to <=5 bpm (Aidee Oconnell, RN) Accelerations: 15X15 (Aidee Oconnell, RN) Decelerations: None (Aidee Oconnell, RN) Datetime: 01/09/2017 10:30 Uterine Activity Monitor Mode: External; Palpation (Aidee Oconnell, RN) Frequency (min): 4-5 (Aidee Oconnell, RN) Quality: Mild/Moderate (Aidee Oconnell, RN) Duration (sec): 80-120 (Aidee Oconnell, RN) Resting Tone (Palpate): Relaxed (Aidee Oconnell, RN) Assessment A Monitor Mode: External US (Aidee Oconnell, RN) FHR Baseline Rate : 130 (Aidee Oconnell, RN) Variability: Minimal - Undetectable to <=5 bpm (Aidee Oconnell, RN) Accelerations: 10X10 (Aidee Oconnell, RN) Decelerations: None (Aidee Oconnell, RN) Datetime: 01/09/2017 10:00 Temperature (F): 98.0 (Aidee Oconnell, RN) Temperature (C): 36.7 (QS system process) Temperature Route: Oral (Aidee Oconnell, RN) Uterine Activity Monitor Mode: External (Rosalba Ayush, RN) Frequency (min): 3-5 (Rosalba Ayush, RN) Quality: Mild/Moderate (Rosalba Ayush, RN) Duration (sec): 60-80 (Rosalba Ayush, RN) Resting Tone (Palpate): Relaxed (Rosalba Ayush, RN) Assessment A Monitor Mode: External US (Rosalba Ayush, RN) FHR Baseline Rate : 130 (Rosalba Ayush, RN) Variability: Moderate 6-25 bpm (Rosalba Ayush, RN) Accelerations: 15X15 (Rosalba Ayush, RN) Decelerations: Early (Rosalba Ayush, RN) LaborFlag: Antepartum (QS system process) Datetime: 01/09/2017 09:52 Pain Pain Scale: 0 (Aidee Oconnell, RN) Pain Presence: None/Denies (Aidee Oconnell, RN) Pain Type: N/A (Aidee Oconnell, RN) Pain Goal: 0 (Aidee Oconnell RN) Pain Relief Measures: Pain Medication Given (Aidee Oconnell, RN) LaborFlag: Antepartum (QS system process) Datetime: 01/09/2017 09:40 Medications Analgesics/Sedatives: Nubain (mg) @ 10mg IV ; Phenergan (mg) @ 12.5mg IV (Vita Scott, RN) Datetime: 01/09/2017 09:30 Uterine Activity Monitor Mode: External; Palpation (Rosalba Ayush, RN) Frequency (min): 3-5 (Rosalba Ayush, RN) Quality: Mild/Moderate (Rosalba Ayush, RN) Duration (sec): 60-80 (Rosalba Ayush, RN) Resting Tone (Palpate): Relaxed (Rosalba Ayush, RN) Assessment A Monitor Mode: External US (Rosalba Ayush, RN) FHR Baseline Rate : 130 (Rosalba Ayush, RN) Variability: Moderate 6-25 bpm (Rosalba Ayush, RN) Accelerations: 15X15 (Rosalba Ayush, RN) Decelerations: None (Rosalba Ayush, RN) Datetime: 01/09/2017 09:00 Uterine Activity Monitor Mode: External (Juliette Marlatt, RN) Frequency (min): 3-6 (Juliette Marlatt, RN) Quality: Mild/Moderate (Juliette Marlatt, RN) Duration (sec): 60-120 (Juliette Marlatt, RN) Resting Tone (Palpate): Relaxed (Juliette Marlatt, RN) Assessment A Monitor Mode: External US (Juliette Marlatt, RN) FHR Baseline Rate : 130 (Juliette Marlatt, RN) Variability: Moderate 6-25 bpm (Juliette Marlatt, RN) Accelerations: 15X15 (Juliette Marlatt, RN) Decelerations: None (Juliette Marlatt, RN) Membrane Status: Ruptured (Vita Scott RN) Membranes Ruptured Date/Time: 01/09/2017 06:30 (Vita Scott RN) Membranes Rupture Method: Spontaneous (Vita Scott RN) Amniotic Fluid Color: Clear (Vita Scott RN) Amniotic Fluid Amount: Small (Vita Scott RN) Amniotic Fluid Odor: Normal (Vita Scott RN) Vaginal Bleeding: None (Vita Scott RN) ROM Test Kit: Positive (Vita Scott RN) Datetime: 01/09/2017 08:30 Uterine Activity Monitor Mode: External (Juliette Banda RN) Frequency (min): 5 (Juliette Banda RN) Quality: Mild/Moderate (Juliette Banda RN) Duration (sec): 60-90 (Juliette Banda RN) Resting Tone (Palpate): Relaxed (Juliette Banda RN) Assessment A Monitor Mode: External US (Juliette Marlatt, RN) FHR Baseline Rate : 130 (Juliette Marlatt, RN) Variability: Moderate 6-25 bpm (Juliette Marlatt, RN) Accelerations: 15X15 (Juliette Marlatt, RN) Decelerations: None (Juliette Marlatt, RN) Datetime: 01/09/2017 08:11 NBP Sys/Mackenzie/Mean (mmHg): 122 (QS system process) : 66 (QS system process) : 85 (QS system process) Pulse: 88 (QS system process) LaborFlag: Antepartum (QS system process) Datetime: 01/09/2017 08:10 Comments: Monitors applied, explained to pt. (Aidee Oconnell, RN) Vaginal Exam Dilatation (cm): 1.0 (Aidee Oconnell, RN) Effacement (%): 80 (Aidee Oconnell, RN) Station: -1 (Aidee Oconnell, RN) Exam by: L. Oconnell, RN (Aidee Oconnell, RN) Patient Care Patient Position/Activity: Right Lateral (Aidee Oconnell, RN) Datetime: 01/09/2017 08:06 Vital Signs Stage of : Antepartum (Aidee Oconnell, RN) Datetime: 01/09/2017 07:54 Frequency (min): q 3 min (Aidee Oconnell, RN) Pain Pain Scale: 5 (Aidee Oconnell RN) Pain Presence: Intermittent (Aidee Oconnell RN) Pain Type: Contraction (Aidee Oconnell RN) Pain Location: Abdomen (Aidee Oconnell RN) Pain Goal: 0 (Aidee Oconnell RN) Pain Relief Measures: Comfort Measures (Aidee Oconnell RN) Pain Coping: Breathing Through Contractions (Aidee Oconnell RN) Vaginal Bleeding: Scant (Aidee Oconnell RN) Maternal Assessment Level of Consciousness: Fully Conscious (Aidee Oconnell RN) DTR's/Clonus: DTRs 2+; No Clonus (Aidee Oconnell RN) Headache: Denies (Aidee Oconnell RN) Breath Sounds, Left: Clear and Equal (Aidee Oconnell RN) Breath Sounds, Right: Clear and Equal (Aidee Oconnell RN) Nausea/Vomiting: Denies (Aidee Oconnell RN) RUQ Epigastric Pain: Denies (Aidee Oconnell RN)
[2017-01-09] MEDS: IBUPROFEN 800 MG TABLET PO SCH (21:00)
[2017-01-09] MEDS: ACETAMINOPHEN WITH CODEINE #3 TABLET PO PRN (21:51)
[2017-01-10] MEDS: ACETAMINOPHEN WITH CODEINE #3 TABLET PO PRN ×3 (03:58→18:03)
[2017-01-10] MEDS: IBUPROFEN 800 MG TABLET PO SCH ×3 (04:58→21:24)
--- NOTE | 2017-01-10 06:01 | L&D General Admission ---
General Admit Datetime Report Generated by CPN: 01/10/2017 06:00 INFORMATION Patient Age: 21 (01/09/2017 07:47:QS system process) EDC: 01/14/2017 00:00 (01/09/2017 07:59:Aidee Oconnell RN) : 1 (01/09/2017 07:59:Aidee Oconnell RN) Para: 0 (01/09/2017 07:59:Aidee Oconnell RN) Term: 0 (01/09/2017 07:59:Aidee Oconnell RN) : 0 (01/09/2017 07:59:Aidee Oconnell RN) Spontaneous Abortions: 0 (01/09/2017 07:59:Aidee Oconnell RN) Induced Abortions: 0 (01/09/2017 07:59:Aidee Oconnell RN) Livin (01/09/2017 07:59:Aidee Oconnell RN) Cesareans: 0 (01/09/2017 07:59:Aidee Oconnell RN) VBACs: 0 (01/09/2017 07:59:Aidee Oconnell RN) Ectopic: 0 (01/09/2017 07:59:Aidee Oconnell RN) Multiple Births: 0 (01/09/2017 07:59:Aidee Oconnell RN) Baby, Number in Womb: 1 (01/09/2017 07:59:Aidee Oconnell RN) CARE Primary Erp Implementation Consultant: [facility] (01/09/2017 07:59:Aidee Oconnell RN) Month of 1st Visit: June (01/09/2017 07:59:Aidee Oconnell RN) Adequate Care: Yes (01/09/2017 07:59:Aidee Oconnell RN) Height (in): 62 (01/09/2017 17:19:QS system process) ALLERGIES Medication Allergy: No (01/09/2017 07:59:Aidee Oconnell RN) Medication Allergies: No Known Allergies (01/09/2017) (01/09/2017 07:59:QS system process) Latex Allergy: No Latex Allergies (01/09/2017 07:59:Aidee Oconnell RN) Food Allergies: None (01/09/2017 07:59:Aidee Oconnell RN) Environmental Allergies: None (01/09/2017 07:59:Aidee Oconnell RN) COMMUNICATION Primary Language: English (01/09/2017 07:59:Aidee Oconnell RN) Medical Tx Preferred Language: Kazakh (01/09/2017 07:59:Aidee Oconnell RN) Communication Barrier(s): None (01/09/2017 07:59:Aidee Oconnell RN) Communication Needs: 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 (01/09/2017 07:59:Aidee Oconnell RN) DEMOGRAPHICS Address: [address] [place] [id number] (01/09/2017 07:47:QS system process) Zipcode: [address] (01/09/2017 07:47:QS system process) Home (01/09/2017 07:47:QS system process) SSN: [id number] (01/09/2017 07:47:QS system process) Next of Kin Name: DAV LIU (01/09/2017 07:47:QS system process) Next of Kin (01/09/2017 07:47:QS system process) Next of Kin Relationship: SPO (01/09/2017 07:47:QS system process) Date of : 1995 (01/09/2017 07:47:QS system process) Marital Status: (01/09/2017 07:47:QS system process) Sex: Female (01/09/2017 07:47:QS system process) Race: Other (01/09/2017 07:47:QS system process) Ethnicity: Non- or (01/09/2017 07:47:QS system process) Congregation: None (01/09/2017 07:47:QS system process) DRUG AND ALCOHOL USE Alcohol: No (01/09/2017 07:59:Aidee Oconnell RN) Cigarettes: Light Tobacco Smoker. 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 (01/09/2017 07:59:Aidee Ocnonell RN) Feeding Preference: Both (01/09/2017 07:59:Aidee Oconnell RN) Benefit of Breast Feed Discussed: Yes (01/09/2017 07:59:Aidee Oconnell RN) Circumcision: Yes (01/09/2017 07:59:Aidee Oconnell RN) Classes Attended: No (01/09/2017 07:59:Aidee Oconnell RN) Tubal Ligation: No (01/09/2017 07:59:Aidee Oconnell RN) Tubal Authorization Signed: N/A (01/09/2017 07:59:Aidee Oconnell RN) Consent: N/A (01/09/2017 07:59:Aidee Oconnell RN) Consent Signed: N/A (01/09/2017 07:59:Aidee Oconnell RN) Pain Management Plans: Epidural (01/09/2017 07:59:Aidee Oconnell RN) Plans for Labor and Delivery: None (01/09/2017 07:59:Aidee Oconnell RN) Support Person: Dav Liu (01/09/2017 07:59:Aidee Oconnell RN) Support Person Relationship: Significant Other (01/09/2017 07:59:Aidee Oconnell RN) Cultural/Spritual Practice: No (01/09/2017 07:59:Aidee Oconnell RN) Spir/Cult Dietary Needs: Yes (01/09/2017 07:59:Aidee Oconnell RN) Describe Dietary Needs: No pork (01/09/2017 07:59:Aidee Oconnell RN) LIVING SITUATION/DISCHARGE PLAN Living Arrangements: House (01/09/2017 07:59:Aidee Oconnell RN) Adequate Access to:: Electric; Heat; Refrigeration; Plumbing/Running water; Phone; Transportation (01/09/2017 07:59:Aidee Oconnell RN) WIC Program: No (01/09/2017 07:59:Aidee Oconnell RN) Discharge Retail Account Executive Person: Dav Liu (01/09/2017 07:59:Aidee Oconnell RN) Person to Help after Discharge: Dav Liu (01/09/2017 07:59:Aidee Oconnell RN) Currently Using Commun Resources: Yes (01/09/2017 07:59:Aidee Oconnell RN) Specify Current Resource Used: Medicaid (01/09/2017 07:59:Aidee Oconnell RN) Outside Agency/Car Pusher: No (01/09/2017 07:59:Aidee Oconnell RN) Car Seat for Discharge: No (01/09/2017 07:59:Aidee Oconnell RN) Adoption Requested: Yes (01/09/2017 07:59:Aidee Oconnell RN) Pt Contact w/infant Post : N/A (01/09/2017 07:59:Aidee Oconnell RN) LABS Blood Type: B Positive (01/09/2017 07:59:Aidee Oconnell RN) Hemoglobin: 12.1 (01/09/2017 09:30:QS system process) Hematocrit: 35.6 L (01/09/2017 09:30:QS system process) MCV: 91 (01/09/2017 09:30:QS system process) Group Beta Strep: Negative (01/09/2017 07:59:Aidee Oconnell RN) Gonorrhea: Negative (01/09/2017 07:59:Aidee Oconnell RN) Chlamydia: Negative (01/09/2017 07:59:Aidee Oconnell RN) RPR/VDRL: Nonreactive (01/09/2017 07:59:Aidee Oconnell RN) HIV Exposure Test: Negative (01/09/2017 07:59:Aidee Oconnell RN) Hepatitis B: Positive (01/09/2017 07:59:Aidee Oconnell RN) Rubella: Immune (01/09/2017 07:59:Aidee Oconnell RN) OB/PREVIOUS HISTORY Previous Procedures: None (01/09/2017 07:59:Aidee Oconnell RN) Current Procedures: Ultrasound; NST (01/09/2017 07:59:Aidee Oconnell RN) History of Previous : No (01/09/2017 07:59:Aidee Oconnell RN) History of Gestational Diabetes: No (01/09/2017 07:59:Aidee Oconnell RN) History of PIH: No (01/09/2017 07:59:Aidee Oconnell RN) History of Incompetent Cervix: No (01/09/2017 07:59:Aidee Oconnell RN) History of Placenta Previa/Abrup: No (01/09/2017 07:59:Aidee Oconnell RN) History of Macrosomia: No (01/09/2017 07:59:Aidee Oconnell RN) History of IUGR: No (01/09/2017 07:59:Aidee Oconnell RN) History of Hemorrhage: No (01/09/2017 07:59:Aidee Oconnell RN) History of Loss/Stillborn: No (01/09/2017 07:59:Aidee Oconnell RN) History of : No (01/09/2017 07:59:Aidee Oconnell RN) History of D (Rh) Sensitization: No (01/09/2017 07:59:Aidee Oconnell RN) History Recurrent Loss/Stillborn: No (01/09/2017 07:59:Aidee Oconnell RN) History Depression/PP Depression: No (01/09/2017 07:59:Aidee Oconnell RN) History of Uterine Anomaly/CHRISTELLE: No (01/09/2017 07:59:Aidee Oconnell RN) History of Infertility: No (01/09/2017 07:59:Aidee Oconnell RN) History of ART Treatment: No (01/09/2017 07:59:Aidee Oconnell RN) History of CHRISTELLE: No (01/09/2017 07:59:Aidee Oconnell RN) Comments Obstetrical History: G1 - current (01/09/2017 07:59:Aidee Oconnell RN) MEDICAL HISTORY Med Hx Diabetes: No (01/09/2017 07:59:Aidee Oconnell RN) Med Hx Hypertension: No (01/09/2017 07:59:Aidee Oconnell RN) Med Hx Heart Disease: No (01/09/2017 07:59:Aidee Oconnell RN) Med Hx Autoimmune Disorder: No (01/09/2017 07:59:Aidee Oconnell RN) Med Hx Kidney Disease/UTI: Yes (01/09/2017 07:59:Aidee Oconnell RN) Med Hx Neurologic/Epilepsy: No (01/09/2017 07:59:Aidee Oconnell RN) Med Hx Psychiatric Disorders: No (01/09/2017 07:59:Aidee Oconnell RN) Med Hx Hepatitis/Liver Disease: Yes (01/09/2017 07:59:Aidee Oconnell RN) Med Hx Varicosities/Phlebitis: No (01/09/2017 07:59:Aidee Oconnell RN) Med Hx Thyroid Dysfunction: No (01/09/2017 07:59:Aidee Oconnell RN) Med Hx Trauma/Violence: No (01/09/2017 07:59:Aidee Oconnell RN) Med Hx Blood Transfusion: No (01/09/2017 07:59:Aidee Oconnell RN) Med Hx Pulmonary (Asthma,TB): No (01/09/2017 07:59:Aidee Oconnell RN) Med Hx Breast: No (01/09/2017 07:59:Aidee Oconnell RN) Med Hx 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: No (01/09/2017 07:59:Aidee Oconnell RN) Med Hx Hospitalization/Surgery: Yes (01/09/2017 07:59:Aidee Oconnell RN) Med Hx Anesthetic Complications: No (01/09/2017 07:59:Aidee Oconnell RN) Med Hx Abnormal Pap Smear: No (01/09/2017 07:59:Aidee Oconnell RN) Other Medical Diseases: No (01/09/2017 07:59:Aidee Oconnell RN) Med Hx Significant Family Hx: No (01/09/2017 07:59:Aidee Oconnell RN) Details of Med/Surg Hx: Kidney stones (01/09/2017 07:59:Aidee Oconnell RN) INFECTIOUS HISTORY Inf Hx Gonorrhea: No (01/09/2017 07:59:Aidee Oconnell RN) Inf Hx Chlamydia: No (01/09/2017 07:59:Aidee Oconnell RN) Inf Hx Syphilis: No (01/09/2017 07:59:Aidee Oconnell RN) Inf Hx HIV/AIDS: No (01/09/2017 07:59:Aidee Oconnell RN) Inf Hx Human Papilloma Virus: No (01/09/2017 07:59:Aidee Oconnell RN) Inf Hx Pt/Partner Genital Herpes: No (01/09/2017 07:59:Aidee Oconnell RN) Inf Hx Tuberculosis/Exposure: No (01/09/2017 07:59:Aidee Oconnell RN) Inf Hx Hepatitis B,C: Yes (01/09/2017 07:59:Aidee Oconnell RN) Inf Hx Rash or Viral Illness: No (01/09/2017 07:59:Aidee Oconnell RN) GENETIC HISTORY Gen Hx Age >=35 at JEWEL: No (01/09/2017 07:59:Aidee Oconnell RN) Gen Hx Thalassemia: No (01/09/2017 07:59:Aidee Oconnell RN) Gen Hx Congenital Heart Defect: No (01/09/2017 07:59:Aidee Oconnell RN) Gen Hx Neural Tube Defect: No (01/09/2017 07:59:Aidee Oconnell RN) Gen Hx Down's Syndrome: No (01/09/2017 07:59:Aidee Oconnell RN) Gen Hx [place]-Sachs: No (01/09/2017 07:59:Aidee Oconnell RN) Gen Hx Rock: No (01/09/2017 07:59:Aidee Oconnell RN) Gen Hx Familial Dysautonomia: No (01/09/2017 07:59:Aidee Oconnell RN) Gen Hx Sickle Cell Disease/Trait: No (01/09/2017 07:59:Aidee Oconnell RN) Gen Hx Hemophilia/Blood Disorder: No (01/09/2017 07:59:Aidee Oconnell RN) Gen Hx Muscular Dystrophy: No (01/09/2017 07:59:Aidee Oconnell RN) Gen Hx Cystic Fibrosis: No (01/09/2017 07:59:Aidee Oconnell RN) Gen Hx [place] Chorea: No (01/09/2017 07:59:Aidee Oconnell RN) Gen Hx Mental Retardation/Autism: No (01/09/2017 07:59:Aidee Oconnell RN) Gen Hx Tested for Fragile X: No (01/09/2017 07:59:Aidee Oconnell RN) Gen Hx Other Inher/Chromosomal: No (01/09/2017 07:59:Aidee Oconnell RN) Gen Hx Maternal Metabolic DO: No (01/09/2017 07:59:Aidee Oconnell RN) Gen Hx Pt Father or FOB Defect: No (01/09/2017 07:59:Aidee Oconnell RN) Gen Hx Other Genetic History: No (01/09/2017 07:59:Aidee Oconnell RN) Gen Hx Drugs/Meds since LMP: No (01/09/2017 07:59:Aidee Oconnell RN)
--- NOTE | 2017-01-10 06:01 | L&D Current Admission ---
Current Admit Datetime Report Generated by CPN: 01/10/2017 06:00 ADMISSION INFORMATION Current Admit Date/Time: 01/09/2017 08:49 (01/09/2017 07:54:Aidee Oconnell RN) Reason for Admission: Rupture of Membranes (01/09/2017 07:54:Aidee Oconnell RN) Chief Complaint: Contractions; Suspected Rupture of Membranes (01/09/2017 07:54:Aidee Oconnell RN) Medications During : Vitamin (01/09/2017 07:54:Aidee Oconnell RN) EGA per Dates: 39.2 (01/09/2017 07:59:QS system process) Method of Arrival: Ambulatory (01/09/2017 07:54:Aidee Oconnell RN) Admitted From: Home (01/09/2017 07:54:Aidee Oconnell RN) Reason for Induction: Not Applicable (01/09/2017 07:54:Aidee Oconnell RN) Records Available: Yes (01/09/2017 07:54:Aidee Oconnell RN) General Admission Information: Reviewed; Updated (01/09/2017 07:54:Aidee Oconnell RN) BELONGINGS/ADVANCED DIRECTIVES Valuables/Personal Effects: Purse/Wallet; Cell Phone (01/09/2017 07:54:Aidee Oconnell RN) Other Belongings: clothing (01/09/2017 07:54:Aidee Oconnell RN) Disposition of Belongings: Kept with Patient (01/09/2017 07:54:Aidee Oconnell RN) Advance Direct for Healthcare: No, and Wants No Information (01/09/2017 07:54:Aidee Oconnell RN) Durable Power of Commercial Lending Assistant: No (01/09/2017 07:54:Aidee Oconnell RN) Living Will: No (01/09/2017 07:54:Aidee Oconnell RN) Organ Donor: No (01/09/2017 07:54:Aidee Oconnell RN) Pt Rights Information Given: Yes (01/09/2017 07:54:Aidee Oconnell RN) Pt Understands Pt Rights: Yes (01/09/2017 07:54:Aidee Oconnell RN) LEARNING ASSESSMENT Knowledge Level: Understands L_D Process; Understands Care Activities; Had Pre-Hospital Education; Understands Diagnosis (01/09/2017 07:54:Aidee Oconnell RN) Barriers to Learning: None (01/09/2017 07:54:Aidee Oconnell RN) Learning Readiness: Motivated (01/09/2017 07:54:Aidee Oconnell RN) Learns Best By: 1 to 1 Instruction; Demonstration (01/09/2017 07:54:Aidee Oconnell RN) Learning Needs: Labor and Delivery Process; Pain Management; Symptoms to Report; Treatment Plan; Medication; Diagnosis; Nutrition; Equipment; Care; Community Resources (01/09/2017 07:54:Aidee Oconnell RN) DOMESTIC VIOLANCE SCREENING Dom Viol Threatened/Hurt: No (01/09/2017 07:54:Aidee Oconnell RN) Hx of Abuse/Neglect past 2yrs: No (01/09/2017 07:54:Aidee Oconnell RN) Feel Unsafe Going Home: No (01/09/2017 07:54:Aidee Oconnell RN) Addt'l Observ Indicating Abuse: No (01/09/2017 07:54:Aidee Oconnell RN) Reason Unable to Complete Screen: N/A, Screen Completed (01/09/2017 07:54:Aidee Oconnell RN) Considered Personal Harm/Suicide: No (01/09/2017 07:54:Aidee Oconnell RN) NUTRITIONAL/FUNCTIONAL SCREENING Problem with Appetite >5 Days: No (01/09/2017 07:54:Aidee Oconnell RN) Chew/Swallow Difficulties: No (01/09/2017 07:54:Aidee Oconnell RN) Inappropriate Wt Gain/Loss: No (01/09/2017 07:54:Aidee Oconnell RN) Presence Skin Breakdown/Ulcer: No (01/09/2017 07:54:Aidee Oconnell RN) Special Diet: No (01/09/2017 07:54:Aidee Oconnell RN) Pt Requests Genetics Nurse Visit: No (01/09/2017 07:54:Aidee Oconnell RN) Hx of Any of the Following?: N/A (01/09/2017 07:54:Aidee Oconnell RN) New Diagnosis of: N/A (01/09/2017 07:54:Aidee Oconnell RN) Requires Assist w/Ambulation: No (01/09/2017 07:54:Aidee Oconnell RN) Uses Assist Device to Ambulate: No (01/09/2017 07:54:Aidee Oconnell RN) Pt Requires Help w/ADL's: No (01/09/2017 07:54:Aidee Oconnell RN)
--- NOTE | 2017-01-10 06:16 | L&D Care Plan ---
LD CARE PLANS Datetime Report Generated by CPN: 01/10/2017 06:15 Datetime: 01/09/2017 08:44 Pain State: Risk For (Juliette Banda RN) Related To: Labor and Delivery Process (Juliette Banda RN) Goal(s): Patients Pain will be Assessed and Managed; Patient will Verbalize Adequate Relief of Pain or the Ability to [place] with Current Pain (Juliette Banda RN) Interventions: Assess Pain Severity on Scale of 0 (None) to 5 (Severe); Assess Type, Location and Intensity of Pain Each Time Client Reports Discomfort and Notify Provider if Unusal Pain Develops; Encourage Proper Breathing and Relaxation Techniques; Offer Alternatives Such as Repositioning, Calm Environment, Massages, Diversional Activities, Ice Pack, Splinting, and Ambulation; Administer Analgesics as Ordered; Assist with Epidural Placement as Appropriate; Evaluate Therapeutic Effectiveness of Medication and Treatments (Juliette Banda RN) Outcome: Patient will Report Absence or Relief of Pain Consistent with Established Pain Goal (Juliette Banda RN) Status: Ongoing (Juliette Banda RN) Outcome: Patient will have a Decrease in Signs and Symptoms of Discomfort (Juliette Banda RN) Status: Ongoing (Juliette Banda RN) Outcome: Pain will be Controlled During Procedures (Juliette Banda RN) Status: Ongoing (Juliette Banda RN) Anxiety State: Risk For (Juliette Banda RN) Related To: Labor and Delivery Process (Juliette Banda RN) Goal(s): Patient will have Decreased Anxiety and be able to Function at Acceptable Levels (Juliette Banda RN) Interventions: Assess Verbal and Nonverbal Behavioral Indicators of Anxiety; Assist Patient to Identify and Verbalize Symptoms of Anxiety; Identify and Demonstrate Techniques to Control Anxiety; Assist Patient with Coping Mechanisms to Manage Anxiety; Provide Theraputic Touch for the Patient; Explain to Patient, Using a Calm Reassuring Approach and Nonmedical Terms, All Activities, Procedures, and Concerns; Instruct Patient and Family about Post Discharge Care, Limitations, Symptoms to Report and Resources Available (Juliette Banda RN) Outcome: Patient will Identify, Verbalize and Demonstrate Techniques to Control Anxiety (Juliette Banda RN) Status: Ongoing (Juliette Banda RN) Outcome: Patient's Posture, Facial Expressions, Gestures and Activity Level will Reflect Decreased Anxiety (Juliette Banda RN) Status: Ongoing (Juliette Banda RN) Outcome: Patient will Verbalize a Sense of Control and/or Acceptance of the Situation (Juliette Banda RN) Status: Ongoing (Juliette Banda RN) Outcome: Patient will Identify and Utilize Support Person (Juliette Banda RN) Status: Ongoing (Juliette Banda RN) Knowledge Deficit State: Risk For (Juliette Banda RN) Related To: Labor and Delivery Process (Juliette Banda RN) Goal(s): Patient will Accurately Verbalize Understanding of Plan of Care and Treatment; Patient and Family will Accurately Verbalize Understanding of the Disease Process (Juliette Banda RN) Interventions: Assess Motivation and Willingness of Patient/Family to Learn; Assess Preferred Learning Mode: One to One Instruction, Reading, Videos, Group Discussion or Demonstration; Assess Barriers to Learning: Pain, Emotional State, Language Barrier, Cognitive Impairment, Visual or Hearing Deficits; Assess Patient and Family Knowledge of Disease Process, Medications and Treatment; Discuss Therapy and/or Treatment Options, Describe Rationale Behind Management, Therapy and Treatment Recommendations; Instruct Patient and Family on Signs and Symptoms to Report; Instruct Patient and Family on Medication Effects and Side Effects; Provide Appropriate and Timely Education Using Multiple Techniques; Provide Patient and Family with Support Group Information and Resources; Give Clear and Thorough Explanations and Demonstrations (Juliette Banda RN) Outcome: Patient and Family will Verbalize Understanding of Condition, Treatment and Signs and Symptoms to Report (Juliette Banda RN) Status: Ongoing (Juliette Banda RN) Outcome: Patient will Identify Perceived Learning Needs and Express Motivation to Learn (Juliette Banda RN) Status: Ongoing (Juliette Banda RN) Outcome: Patient will Verbalize Understanding of Desired Content, and/or Performs Desired Skill Prior to Discharge (Juliette Banda RN) Status: Ongoing (Juliette Banda RN) Infection State: Risk For (Juliette Banda RN) Related To: Prolonged Labor or Induction; Premature/Prolonged Rupture of Membranes (Juliette Banda RN) Goal(s): The Patient will be Free of Infection, Vital Signs Stable and Lab Work within Normal Parameters (Juliette Banda RN) Interventions: Instruct and Reinforce Proper Handwashing, Hygiene, and Care Techniques to Patient and Family; Monitor Vital Signs; Monitor Patient for the Following Signs of Infection: Fever, Abdominal Tenderness, Unusual Discharge; Monitor Aminiotic Fluid, Urine and Lochia for Color and Odor; Observe Wounds, Incisions and Invasive Line Sites for Redness, Drainage and Edema; Assess IV Sites per Hospital Policy; Monitor Lab and Test Results and Notify Provider of Abnormal Findings; Assess Nutritional Status and Promote Good Nutrition (Juliette Banda RN) Outcome: Patient will Remain Free of Infection (Juliette Banda RN) Status: Ongoing (Juliette Banda RN) Outcome: Infection will be Recognized Early to Allow for Prompt Treatment (Juliette Banda RN) Status: Ongoing (Juliette Banda RN) Outcome: Patient will have Vital Signs Within Expected Range (Juliette Banda RN) Status: Ongoing (Juliette Banda RN) Fluid Volume State: Risk For (Juliette Banda RN) Related To: Prolonged Labor or Induction (Juliette Banda RN) Goal(s): Patient will Achieve and Maintain a Balanced Fluid Volume Status; Hemodynamically Stable (Juliette Banda RN) Interventions: Monitor Vital Signs; Auscultate Breath Sounds; Monitor Patient for Skin Turgor, Mucous Membranes, Dry Skin, Weakness, Headaches and Confusion; Provide Oral Fluids as Ordered; Initiate and Maintain Intravenous Fluids as Ordered; Monitor Intake and Output as Indicated Per Patient Status; Accurately Measure Blood Loss; Monitor Lab and Test Results as Obtained and Notify Provider of Abnormal Findings; Monitor Patient's Weight (Juliette Banda RN) Outcome: Patient will have Clear Lung Sounds (Juliette Banda RN) Status: Ongoing (Juliette Banda RN) Outcome: Patient will have Vital Signs within Expected Range (Juliette Banda RN) Status: Ongoing (Juliette Banda RN) Outcome: Urine Output will be within Expected Range (Juliette Banda RN) Status: Ongoing (Juliette Banda RN) Outcome: Patient will have Minimal Generalized or Upper Extremity Edema (Juliette Banda RN) Status: Ongoing (Juliette Banda RN) Injury Related To: Labor and Delivery Process (Juliette Banda RN) Goal(s): Patient will Remain Free from Injury (Juliette Banda RN) Interventions: Monitoring as per Hospital Protocol; Assess Neurological Status; Perform Risk Assessment of Patients with Induction and ; Perform Fall Risk Assessment and Prevention per Hospital Protocol; Perform DVT Risk Assessment and Prophylaxis per Hospital Protocol; Ensure that Oxygen, Suction, and Resuscitation Medications and Equipment are Readily Available; Confirm Patient ID Prior to Procedure(s) and Medication Administration per Hospital Policy (Juliette Banda RN) Outcome: Successful Fall Risk Prevention (Juliette Banda RN) Status: Ongoing (Juliette Banda RN) Outcome: Patient will Deliver without Adverse [place]ela (Juliette Banda RN) Status: Ongoing (Juliette Banda RN) Outcome: Patient's Neurological Status will Remain Stable (Juliette Banda RN) Status: Ongoing (Juliette Banda RN) Impaired Skin Integrity State: Risk For (Juliette Banda RN) Related To: Vaginal Delivery (Juliette Banda RN) Goal(s): Patient will Maintain Optimal Skin Integrity, Free of Breakdown, Injury or Infection (Juliette Banda RN) Interventions: Complete Screening for Pressure Ulcer Risk and Initiate Protocol per Hospital Policy; Monitor Site of Skin Impairment for Color Changes, Redness, Swelling, Warmth, Pain or Other Signs of Infection; Encourage and Assist with Position Changes; Monitor Patient's Mobility Status; Provide Adequate Nutrition and Fluids; Teach Patient Appropriate Hygienic Care; Teach Patient/Family Skin Care Management (Juliette Banda RN) Outcome: Patient will not have Evidence of Injury Such as Skin Breakdown, Scrapes, Cuts, or Bruising (Juliette Banda RN) Status: Ongoing (Juliette Banda RN) Outcome: Patient will Report Any Altered Sensation or Pain at Site of Skin Impairment (Juliette Banda RN) Status: Ongoing (Juliette Banda RN) Outcome: Patients Incisions and Wounds will be without Signs or Symptoms of Infection (Juliette Banda RN) Status: Ongoing (Juliette Banda RN) Outcome: Patient will Demonstrate Understanding of Plan to Heal Skin and Prevent Reinjury and Verbalize Risk Factors (Juliette Banda RN) Status: Ongoing (Juliette Banda RN)
[2017-01-10 07:00] LABS: HEMATOCRIT 34.1 % (36.0-47.0); HEMOGLOBIN 11.6 g/dL (12.0-15.5); HGB HCT DIFFERENCE 0.7; MEAN CORPUSCULAR HEMOGLOBIN 31.3 pg (27.0-33.4); MEAN CORPUSCULAR VOLUME 92 fl (80-97); WHITE BLOOD COUNT 11.1 10^3/uL (4.0-10.5)
[2017-01-10] MEDS: SENNOSIDES/DOCUSATE 8.6-50 MG 1 EACH TABLET PO SCH (10:07)
[2017-01-10] MEDS: FERROUS SULFATE 325 MG TABLET PO SCH ×2 (10:07→17:54)
[2017-01-10] MEDS: PRENATAL VITAMIN W-O CA NO5/FE FUMARATE/FA CAPSULE PO SCH (10:07)
[2017-01-10] MEDS: DOCUSATE SODIUM 100 MG CAPSULE PO SCH ×2 (10:07→17:54)
--- NOTE | 2017-01-10 10:22 | PDOC PROGRESS REPORT ---
Subjective-OB Subjective: Post Delivery Day: 21 year old. Denies any needs at this time s/p vaginal delivery bonding well with [id number] mild lochia breast and bottle feeding anticipate d/c in AM Physical Exam (OB) Vital Signs: Temp Pulse Resp BP Pulse Ox 98.0 F 72 16 112/71 98 01/10/17 07:55 01/10/17 07:55 01/10/17 07:55 01/10/17 07:55 01/10/17 07:55 Intake & Output 01/09/17 01/10/17 01/11/17 06:59 06:59 06:59 Weight 70.3 kg - Lochia Lochia Amount: Small 10-25 ml Lochia Color: Rubra/Red - Abdomen Description: Soft, Round Hernia Present: No Fundal Description: Firm, Midline Fundal Height: u/u - u/2 Objective-Diagnostic Laboratory: 01/10/17 06:35 01/09/17 01/10/17 09:30 06:35 WBC 11.1 H RBC 3.70 L Hgb 11.6 L Hct 34.1 L MCV 92 MCH 31.3 MCHC 34.0 RDW 13.0 Plt Count 179 Blood Type B POSITIVE Antibody Screen NEGATIVE
[2017-01-10 18:55] LABS: ABSOLUTE LYMPHOCYTES (AUTO) 0.8 10^3/uL (0.5-4.7); ABSOLUTE MONOCYTES (AUTO) 0.5 10^3/uL (0.1-1.4); ABSOLUTE NEUT (AUTO) 10.3 10^3/uL (1.7-8.2); BASOPHILS % (AUTO) 0.4 % (0-2); EOSINOPHILS % (AUTO) 0.2 % (0-6); HEMATOCRIT 35.2 % (36.0-47.0); HEMOGLOBIN 11.9 g/dL (12.0-15.5); HGB HCT DIFFERENCE 0.5; LYMPHOCYTES % (AUTO) 7.1 % (13-45); MEAN CORPUSCULAR HEMOGLOBIN 31.1 pg (27.0-33.4); MEAN CORPUSCULAR HGB CONC 33.8 g/dL (32.0-36.0); MEAN CORPUSCULAR VOLUME 92 fl (80-97); MONOCYTES % (AUTO) 4.3 % (3-13); RED BLOOD COUNT 3.83 10^6/uL (3.72-5.28); RED CELL DISTRIBUTION WIDTH 13.2 % (11.5-14.0); WHITE BLOOD COUNT 11.7 10^3/uL (4.0-10.5)
[2017-01-10] MEDS ORDERED: PIPERACILLIN/TAZOBACTAM 3.375 GM VIAL IV PRN (22:56)
[2017-01-11] MEDS ORDERED: PIPERACILLIN/TAZOBACTAM 3.375 GM VIAL IV ONE (00:26)
[2017-01-11] MEDS ORDERED: PIPERACILLIN/TAZOBACTAM 3.375 GM VIAL IV PRN (02:00)
[2017-01-11] MEDS: IBUPROFEN 800 MG TABLET PO SCH ×3 (05:36→21:05)
[2017-01-11] MEDS: PIPERACILLIN SODIUM/TAZOBACTAM 3.375 GM in NORMAL SALINE 100 ML IV SCH ×4 (05:36→23:05)
[2017-01-11] MEDS: ACETAMINOPHEN WITH CODEINE #3 TABLET PO PRN (06:32)
[2017-01-11 08:13] LABS: ALANINE AMINOTRANSFERASE 28 U/L (9-52); ALBUMIN 2.4 g/dL (3.5-5.0); ALKALINE PHOSPHATASE 133 U/L (38-126); ANION GAP 10 (5-19); ASPARTATE AMINO TRANSFERASE 28 U/L (14-36); BILIRUBIN,TOTAL 0.6 mg/dL (0.2-1.3); BLOOD UREA NITROGEN 9 mg/dL (7-20); CALCIUM 8.7 mg/dL (8.4-10.2); CARBON DIOXIDE 18 mmol/L (22-30); CHLORIDE 105 mmol/L (98-107); CREATININE RESULT 0.76 mg/dL (0.52-1.25); GLUCOSE 96 mg/dL (75-110); POTASSIUM 3.3 mmol/L (3.6-5.0); SODIUM 132.6 mmol/L (137-145); TOTAL PROTEIN 5.8 g/dL (6.3-8.2)
--- NOTE | 2017-01-11 09:57 | PDOC PROGRESS REPORT ---
Subjective-OB Subjective: Post Delivery Day: 1 21 year old. Denies any needs at this time, states lochia is stable, pain is well controlled, voiding without difficulty. States back pain is better, denies headache, states floaters in eyes, denies dizziness. Physical Exam (OB) Vital Signs: Temp Pulse Resp BP Pulse Ox 98.4 F 115 H 17 103/59 L 95 01/11/17 08:27 01/11/17 08:27 01/11/17 08:27 01/11/17 08:27 01/11/17 08:27 Intake & Output 01/10/17 01/11/17 01/12/17 06:59 06:59 06:59 Intake Total 1460 Output Total 2175 Balance -715 Weight 70.3 kg - Lochia Lochia Amount: Scant < 10 ml Lochia Color: Rubra/Red - Abdomen Description: Tender, Soft Hernia Present: No Fundal Description: Firm, Midline Fundal Height: u/u - u/2 Objective-Diagnostic Laboratory: 01/10/17 18:50 01/11/17 07:34 01/10/17 01/11/17 18:50 07:34 WBC 11.7 H RBC 3.83 Hgb 11.9 L Hct 35.2 L MCV 92 MCH 31.1 MCHC 33.8 RDW 13.2 Plt Count 129 L Seg Neutrophils % 88.0 H Lymphocytes % 7.1 L Monocytes % 4.3 Eosinophils % 0.2 Basophils % 0.4 Absolute Neutrophils 10.3 H Absolute Lymphocytes 0.8 Absolute Monocytes 0.5 Absolute Eosinophils 0.0 Absolute Basophils 0.0 Sodium 132.6 L Potassium 3.3 L Chloride 105 Carbon Dioxide 18 L Anion Gap 10 BUN 9 Creatinine 0.76 Est GFR ( Amer) > 60 Est GFR (Non-Af Amer) > 60 Glucose 96 Calcium 8.7 Total Bilirubin 0.6 AST 28 ALT 28 Alkaline Phosphatase 133 H Total Protein 5.8 L Albumin 2.4 L Assessment and Plan(PN) - Assessment and Plan (1) Vaginal delivery Is this a current diagnosis for this admission?: YesPlan: routine pp care anticipate d/c home tomorrow if feeling better (2) Hydronephrosis Is this a current diagnosis for this admission?: YesPlan: out patient nephrology consult continue to monitor d/c cath monitor I & O - Time Spent with Patient Time with patient: Less than 15 minutes Critical Time spent with patient: Less than 15 minutes Medications reviewed and adjusted accordingly: Yes - Disposition Anticipated Discharge: Home Within: within 24 hours
[2017-01-11] MEDS: FERROUS SULFATE 325 MG TABLET PO SCH ×2 (10:51→18:34)
[2017-01-11] MEDS: PRENATAL VITAMIN W-O CA NO5/FE FUMARATE/FA CAPSULE PO SCH (10:51)
[2017-01-11] MEDS: DOCUSATE SODIUM 100 MG CAPSULE PO SCH ×2 (10:51→18:34)
[2017-01-11] MEDS: SENNOSIDES/DOCUSATE 8.6-50 MG 1 EACH TABLET PO SCH (10:51)
[2017-01-11] MEDS ORDERED: POTASSIUM CHLORIDE 10 MEQ TABLET.SA PO ONE (13:00)
[2017-01-12] MEDS: PIPERACILLIN SODIUM/TAZOBACTAM 3.375 GM in NORMAL SALINE 100 ML IV SCH ×2 (06:04→13:43)
[2017-01-12] MEDS: IBUPROFEN 800 MG TABLET PO SCH ×2 (06:04→13:51)
[2017-01-12 08:21] VITALS: BP 111/58
[2017-01-12] MEDS: PRENATAL VITAMIN W-O CA NO5/FE FUMARATE/FA CAPSULE PO SCH (10:12)
[2017-01-12] MEDS: FERROUS SULFATE 325 MG TABLET PO SCH (10:12)
[2017-01-12] MEDS: DOCUSATE SODIUM 100 MG CAPSULE PO SCH (10:12)
[2017-01-12] MEDS: SENNOSIDES/DOCUSATE 8.6-50 MG 1 EACH TABLET PO SCH (10:12)
--- NOTE | 2017-01-17 10:31 | PDOC DISCHARGE SUMMARY ---
Final Diagnosis Discharge Date: 01/12/17 - Final Diagnosis (1) Hydronephrosis Is this a current diagnosis for this admission?: Yes (2) Vaginal delivery Is this a current diagnosis for this admission?: Yes Discharge Data - Discharge Medication Home Medications: Vit/Iron Fumarate/FA [ Tablet] 1 tab PO DAILY 01/09/17 Ibuprofen [Motrin 800 mg Tablet] 800 mg PO Q8HP PRN #90 tablet 01/12/17 Reason(s) for Admission: Onset of Labor Procedures: Ultrasound Intrapartum Procedure(s): Spontaneous Vaginal Delivery Complication(s): Laceration-Perineal Laceration-Degree: 2nd Complication(s) Note: severe hydronephrosis of the left kidney - [place] Data Baby 1 Male at 1 minute: 8 at 5 minutes: 9 Weight: 2840 kg Home with Mother: Yes Complications: No - Diagnosis Test Laboratory: Temp Pulse Resp BP Pulse Ox 97.9 F 98 20 111/58 L 98 01/12/17 07:22 01/12/17 07:22 01/12/17 07:22 01/12/17 07:22 01/12/17 07:22 01/09/17 01/09/17 01/10/17 08:12 09:30 06:35 RBC 3.90 3.70 L Hgb 12.1 11.6 L Hct 35.6 L 34.1 L Urine Opiates Screen NEGATIVE 01/10/17 18:50 RBC 3.83 Hgb 11.9 L Hct 35.2 L Urine Opiates Screen - Discharge information/Instructions Discharge Activity: Activity As Tolerated, Balance Activity w/Rest, No Lifting Over 10 Pounds, No Lifting/Push/Pulling, Pelvic Rest, No tub bath Discharge Diet: As Tolerated, Regular Disposition: HOME, SELF-CARE Follow up with: [facility] - also follow up with Nephrology as scheduled earlier prn (pt.'s reports she had schedule follow up first week of January) in: 4, Weeks - also needs to follow up with nephrology ANGELO Physical Exam (OB) Vital Signs: Temp Pulse Resp BP Pulse Ox 97.9 F 98 20 111/58 L 98 01/12/17 07:22 01/12/17 07:22 01/12/17 07:22 01/12/17 07:22 01/12/17 07:22 Intake & Output 01/11/17 01/12/17 01/13/17 06:59 06:59 06:59 Intake Total 1460 2050 300 Output Total 2170 5191 Balance -715 1329 300 - General General Appearance: Appears well In distress: None - Episiotomy/Laceration Site Condition: Well Approximated - Lochia Lochia Amount: Scant < 10 ml Lochia Color: Rubra/Red - Abdomen Description: Soft Hernia Present: No Fundal Description: Firm, Midline Fundal Height: u/u - u/2 - Respiratory Respiratory Status: No respiratory distress - Genitourinary Genitourinary Note: no CVA tenderness, reports pain has gotten progressively better since delivery. Denies urgency, frequency or pain with urination. - Extremities Upper extremity: Normal inspection Lower extremities: Normal inspection - Neurological Cognition: Normal Orientation: AAOx4 - Psychological Associated symptoms: Normal mood, Flat affect - helpful and at bedside
== END 2017-01-12 14:50 | disposition home or self-care (01) | DRG 775 ==
LOC: LC 07:47 → LR 08:49 → 2S 17:19
PROVIDERS: ADMIT Obstetrics & Gynecology; ATTEND Obstetrics & Gynecology
PROC: 10E0XZZ Delivery of Products of Conception, External Approach (ICD-10-PCS; principal; 2017-01-09)
PROC: 0KQM0ZZ Repair Perineum Muscle, Open Approach (ICD-10-PCS; 2017-01-09)
PROC: 4A0HXCZ Measurement of Products of Conception, Cardiac Rate, External Approach (ICD-10-PCS; 2017-01-09)
DX: O26.833 Pregnancy related renal disease, third trimester (principal); N13.30 Unspecified hydronephrosis; O99.334 Smoking (tobacco) complicating childbirth; O70.1 Second degree perineal laceration during delivery; F17.210 Nicotine dependence, cigarettes, uncomplicated; Z37.0 Single live birth; Z3A.39 39 weeks gestation of pregnancy
CPT/HCPCS: 36415; 76770; 80053; 80307; 81005; 84112; 85025; 85027; 86592; 86850; 86900; 86901; 87040; 87086; 87088; 87186; J2300; J2370; J2543; J2550; J2590; J3010; J3490

== ENCOUNTER 2018-03-17 16:33 | Outpatient (CLI) | payer MEDICAID ==
[2018-03-17 17:14] LABS: APPEARANCE,URINE SLIGHTLY-CLOUDY; BILIRUBIN,URINE NEGATIVE (NEGATIVE); COLOR,URINE YELLOW; GLUCOSE, URINE 50 mg/dL (NEGATIVE); KETONES,URINE NEGATIVE (NEGATIVE); LEUKOCYTE ESTERASE,URINE NEGATIVE (NEGATIVE); NITRITE,URINE NEGATIVE (NEGATIVE); PROTEIN,URINE NEGATIVE (NEGATIVE); URINE SPECIFIC GRAVITY 1.017; UROBILINOGEN,URINE NEGATIVE mg/dL (<2.0)
[2018-03-17 17:29] LABS: URINE AMPHETAMINES SCREEN NEGATIVE; URINE BARBITURATES SCREEN NEGATIVE; URINE BENZODIAZEPINES SCREEN NEGATIVE; URINE COCAINE SCREEN NEGATIVE; URINE MARIJUANA (THC) SCREEN NEGATIVE; URINE METHADONE SCREEN NEGATIVE; URINE PHENCYCLIDINE SCREEN NEGATIVE
--- NOTE | 2018-03-17 17:39 | Non Stress Test Report ---
Non Stress Test Datetime Report Generated by CPN: 03/17/2018 17:39 INDICATION Indication for Study: Ordered by Provider MONITORING Monitor Explained: Monitor Explained; Test Explained; Patient Verbalized Understanding Time on Monitor: 03/17/2018 16:55 Time off Monitor: 03/17/2018 17:20 NST Duration: 25 NST INTERVENTIONS NST Interventions: Reposition Patient BABY A: [id number] BABY A Movement : Present Accelerations : 15X15 Decelerations : None Variability : Moderate 6-25bpm NST Review: Meets Criteria for Reactive NST NST Results: Reactive NST REPORT Report Trigger: Send Report
== END 2018-03-17 17:34 | disposition home or self-care (01) ==
LOC: LC 16:33
PROVIDERS: ATTEND Obstetrics & Gynecology Gynecology
DX: Z34.90 Encounter for supervision of normal pregnancy, unspecified, unspecified trimester (principal)
CPT/HCPCS: 59025; 80307; 81001